=== PATIENT | female | born 1970 | race Caucasian/White ===

== ENCOUNTER 2017-12-29 08:55 | Observation (INO) | payer MEDICARE, MEDICAID ==
[2017-12-29] VITALS (12 sets, daily range): BP systolic 115–140; BP diastolic 75–86
[~2017-12-29] VITALS: Ht 160 cm; Wt 85.7 kg
[2017-12-29] MEDS ORDERED: CHARCOAL/AQUEOUS 50 GM/240 ML BTL PO ONE (09:15)
[2017-12-29] MEDS ORDERED: NS IV 1000 ML 1,000 ML IV ONE (09:20)
--- OUTSIDE RECORDS SUMMARY | 2017-12-29 09:21 | XMS REPORT ---
Author Author MELY VÁSQUEZ eClinicalWorks Address Unknown Phone Unavailable Care Team Providers Care Tool Filer Name Role Phone MELY VÁSQUEZ CP Unavailable Allergies No Known Allergies Problems Problem Type Condition ICD-9 Code Onset Dates Condition Status Assessment Dental examination V72.2 Active Medications No Known Medications Procedures Procedure Coding System Code Date INTRAORL-PERIAPICAL 1 FILM 74538 CPT-4 D0220 Dec 19, 2014 INTRAORL-PERIAPICAL EA ADD FILM CPT-4 D0230 Dec 19, 2014 COMP ORAL EVALUATION - NEW/EST PT CPT-4 D0150 Dec 19, 2014 PROPHYLAXIS - ADULT CPT-4 D1110 Dec 19, 2014 PANORAMIC FILM SEE ALSO CODE 28104 CPT-4 D0330 Dec 19, 2014 TOPICAL FLUORIDE VARNISH CPT-4 D1206 Dec 19, 2014 INTRAORL-PERIAPICAL EA ADD FILM CPT-4 D0230 Dec 19, 2014 INTRAORL-PERIAPICAL EA ADD FILM CPT-4 D0230 Dec 19, 2014 INTRAORL-PERIAPICAL EA ADD FILM CPT-4 D0230 Dec 19, 2014 INTRAORL-PERIAPICAL EA ADD FILM CPT-4 D0230 Dec 19, 2014 Results No Known Results Summary Purpose eClinicalWorks Submission
[2017-12-29 09:25] LABS: BASOPHILS % (AUTO) 0 % (0-10); EOSINOPHILS # (AUTO) 0.3 10^3/uL (0.0-0.3); EOSINOPHILS % (AUTO) 3 % (0-10); HEMATOCRIT 39 % (35-52); HEMOGLOBIN 13.6 G/DL (11.5-16.0); LYMPHOCYTES % (AUTO) 41 % (12-44); MEAN CORPUSCULAR HEMOGLOBIN 27 PG (25-34); MEAN CORPUSCULAR HGB CONC 35 G/DL (32-36); MEAN CORPUSCULAR VOLUME 79 FL (80-99); MEAN PLATELET VOLUME 9.7 FL (7.4-10.4); MONOCYTES # (AUTO) 0.5 X 10^3 (0.0-1.0); MONOCYTES % (AUTO) 5 % (0-12); NEUTROPHILS # (AUTO) 5.1 X 10^3 (1.8-7.8); NEUTROPHILS % (AUTO) 51 % (42-75); PLATELET COUNT 314 10^3/uL (130-400); RED BLOOD COUNT 4.97 10^6/uL (4.35-5.85); RED CELL DISTRIBUTION WIDTH 14.5 % (10.0-14.5); WHITE BLOOD COUNT 9.9 10^3/uL (4.3-11.0)
[2017-12-29 09:43] LABS: ALANINE AMINOTRANSFERASE 14 U/L (0-55); ALKALINE PHOSPHATASE 75 U/L (40-136); BILIRUBIN,TOTAL 0.2 MG/DL (0.1-1.0); BUN/CREATININE RATIO 14; CARBON DIOXIDE 18 MMOL/L (21-32); CHLORIDE 107 MMOL/L (98-107); GFR ESTIMATED > 60; GLUCOSE 135 MG/DL (70-105); POTASSIUM 3.1 MMOL/L (3.6-5.0); SODIUM 138 MMOL/L (135-145); TOTAL PROTEIN 6.7 GM/DL (6.4-8.2)
[2017-12-29 09:50] LABS: BILIRUBIN,URINE NEGATIVE (NEGATIVE); CLARITY,URINE CLEAR; COLOR,URINE YELLOW; GLUCOSE, URINE (UA) NEGATIVE (NEGATIVE); KETONES,URINE NEGATIVE (NEGATIVE); LEUKOCYTE ESTERASE ,URINE NEGATIVE (NEGATIVE); NITRITE,URINE NEGATIVE (NEGATIVE); PH,URINE 6 (5-9); PROTEIN,URINE NEGATIVE (NEGATIVE); UROBILINOGEN,URINE NORMAL (NORMAL)
[2017-12-29 10:05] LABS: TSH (THYROID ANALYZER) 1.17 UIU/ML (0.35-4.94)
[2017-12-29 10:09] LABS: BACTERIA,URINE NEGATIVE /HPF
[2017-12-29] MEDS ORDERED: DULO60CA58 PO (10:11)
[2017-12-29] MEDS ORDERED: MELO15TA39 PO (10:11)
[2017-12-29] MEDS ORDERED: AMLO5TAB7 PO (10:11)
[2017-12-29] MEDS ORDERED: HYDR-3820 PO (10:11)
[2017-12-29] MEDS ORDERED: GABA600T2 PO (10:11)
[2017-12-29] MEDS ORDERED: ARIP5TAB20 PO (10:11)
[2017-12-29] MEDS ORDERED: CLON1TAB13 PO (10:11)
[2017-12-29] MEDS ORDERED: ESTR1TAB24 PO (10:11)
[2017-12-29] MEDS ORDERED: TIZA4TAB3 PO (10:17)
[2017-12-29] MEDS ORDERED: TRAZ-189 PO (10:17)
[2017-12-29] MEDS ORDERED: CATHETER FLUSH 10 ML SYR IV PRN (10:45)
[2017-12-29] MEDS ORDERED: ONDANSETRON 4 MG/2 ML (SDV) Z0FRAN IV PRN (10:45)
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
[2017-12-29] MEDS: NS W/KCL 20 MEQ/L 1,000 ML IV SCH ×2 (11:09→18:19)
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
[2017-12-29] MEDS ORDERED: RT-ALBUTEROL/IPRATROPIUM 3 ML (DUONEB) VIAL INH SCH ×2 (11:30→14:56)
[2017-12-29 11:40] LABS: SALICYLATE < 5.0 MG/DL (5.0-20.0)
[2017-12-29 11:45] LABS: ACETAMINOPHEN < 10 UG/ML (10-30)
[2017-12-29] MEDS: MAGNESIUM 1 GM/100 ML IVPB 100 ML IV SCH ×2 (14:34→14:35)
[2017-12-29] MEDS: POTASSIUM CL 10MEQ/50ML IVPB 50 ML IV SCH ×4 (14:34→14:41)
[2017-12-29 15:00] LABS: ABG BASE EXCESS -2.6 MMOL/L (-2.5-2.5); ABG OXYGEN SATURATION 95 % (94-100); ABG PCO2 35 MMHG (35-45); ABG PO2 75 MMHG (79-93); ABG TCO2 22.6 MMOL/L (21.0-31.0)
[2017-12-29 15:03] LABS: ALLENS TEST POSITIVE
[2017-12-29 15:04] LABS: PATIENT TEMP 98; VENTILATOR NO
--- NOTE | 2017-12-29 15:06 | Pulmonary Consultation ---
History of Present Illness History of Present Illness Date of Consultation 12/29/17 15:00 Time Seen by Provider: 15:00 Date of Admission History of Present Illness 47yo with hx of suicidal attempt (Last week she took gabapentin, neurontin, and clonazepam) with hx of major depression, anxiety, and biplar presented to ED after suicidal attempt. She OD on Neurontin with unknown amount. Pt admits to suicidal thoughts and attempt. She denies homicidal ideatio. She smokes marijuana daily. Allergies and Home Medications Allergies Coded Allergies: No Known Drug Allergies (Unverified , 12/29/17) Home Medications Amlodipine Besylate 5 Mg Tablet, 5 MG PO DAILY, (Reported) Aripiprazole 5 Mg Tablet, 5 MG PO DAILY, (Reported) Clonazepam 1 Mg Tablet, 1 MG PO TID PRN for ANXIETY, (Reported) Duloxetine HCl 60 Mg Capsule.dr, 60 MG PO DAILY, (Reported) Estradiol 1 Mg Tablet, 1 MG PO DAILY, (Reported) Meloxicam 15 Mg Tablet, 15 MG PO DAILY, (Reported) Trazodone HCl 50 Mg Tablet, 25-50 MG PO HS PRN for SLEEP, (Reported) Past Yzebbdq-Oalily-Edsixc Hx Past Med/Social Hx: Reviewed and Corrections made Patient Social History Alcohol Use: Denies Use Recreational Drug Use: Yes Smoking Status: Current Everyday Smoker (48 pack year history. 1.5 PPD. ) Type Used: Cigarettes Recent Foreign Travel: No Contact w/Someone Who Travel: No Recent Infectious Disease Expo: No Past Medical History Surgeries: Yes (neck) Hysterectomy, Orthopedic (neck and arm) Respiratory: No Cardiac: Yes High Cholesterol, Hypertension Neurological: No : No Reproductive Disorders: No Genitourinary: No Gastrointestinal: No Musculoskeletal: Yes Fibromyalgia Endocrine: No HEENT: No Cancer: No Psychosocial: Yes ADD/ADHD, Anxiety, PTSD, Suicide Attempts, Bipolar, Depression Blood Disorders: Yes Review of Systems Time Seen by Provider: 12:27 Sepsis Event Evaluation Height, Weight, BMI Height: 5'3.00" Weight: 189lbs. 0.0oz. 85.922125sc; 33.5 BMI Method:Stated Exam Exam Vital Signs Date Time Temp Pulse Resp B/P (MAP) Pulse Ox O2 Delivery O2 Flow Rate FiO2 12/29/17 14:58 97 Room Air 12/29/17 13:00 73 22 122/76 (91) 93 Room Air 12/29/17 13:00 95 12/29/17 12:00 79 23 116/77 (90) 92 Room Air 12/29/17 11:30 81 25 123/75 (91) 94 Room Air 12/29/17 11:15 80 23 134/79 (97) 93 Room Air 12/29/17 11:00 98.4 80 21 137/86 (103) 95 Room Air 12/29/17 11:00 78 21 137/86 (103) 96 Room Air 12/29/17 10:55 96 Room Air 12/29/17 10:45 78 19 137/78 (97) 96 Room Air 12/29/17 10:38 76 12/29/17 10:21 78 18 127/77 98 12/29/17 08:55 98.1 82 145/95 (112) 97 Room Air Height & Weight Height: 5'3.00" Weight: 189lbs. 0.0oz. 85.080342ha; 33.5 BMI Method:Stated General Appearance: No Apparent Distress, WD/WN HEENT: No Pharynx Normal (Tongue black due to charcoal); Moist Mucous Membranes Cardiovascular: Regular Rate, Rhythm, No Edema, No Murmur, Normal Peripheral Pulses Capillary Refill: Less Than 3 Seconds Extremity: Normal Inspection, No Pedal Edema Neurologic/Psychiatric: Alert, Oriented x3, No Motor/Sensory Deficits, Normal Mood/Affect, appraiser personal property II-XII Norm as Tested; No Abnormal Cerebellar Tests Skin: Normal Color, Warm/Dry Results Lab Laboratory Tests 12/29/17 09:10 Assessment/Plan Assessment/Plan Suicidal attempt/OD -Poinson control is following -Check UDS -Check CXR r/o aspiration -Behavior health consult Metabolic acidosis -Check LA, and ABG Hypokalemia -Repeat labs now and in AM CHRISTY STODDARD DO Dec 29, 2017 15:06
[2017-12-29 15:41] LABS: BASOPHILS % (AUTO) 0 % (0-10); EOSINOPHILS # (AUTO) 0.3 10^3/uL (0.0-0.3); EOSINOPHILS % (AUTO) 3 % (0-10); HEMATOCRIT 39 % (35-52); HEMOGLOBIN 13.5 G/DL (11.5-16.0); LYMPHOCYTES # (AUTO) 4.3 X 10^3 (1.0-4.0); LYMPHOCYTES % (AUTO) 44 % (12-44); MEAN CORPUSCULAR HEMOGLOBIN 27 PG (25-34); MEAN CORPUSCULAR HGB CONC 34 G/DL (32-36); MEAN CORPUSCULAR VOLUME 79 FL (80-99); MEAN PLATELET VOLUME 9.8 FL (7.4-10.4); MONOCYTES # (AUTO) 0.6 X 10^3 (0.0-1.0); MONOCYTES % (AUTO) 6 % (0-12); NEUTROPHILS # (AUTO) 4.5 X 10^3 (1.8-7.8); NEUTROPHILS % (AUTO) 46 % (42-75); PLATELET COUNT 292 10^3/uL (130-400); RED BLOOD COUNT 4.96 10^6/uL (4.35-5.85); RED CELL DISTRIBUTION WIDTH 14.7 % (10.0-14.5); WHITE BLOOD COUNT 9.6 10^3/uL (4.3-11.0)
[2017-12-29 15:44] LABS: AMPHETAMINE SCREEN, URINE POSITIVE (NEGATIVE); BARBITURATE SCREEN URINE NEGATIVE (NEGATIVE); BENZODIAZEPINES SCREEN URINE NEGATIVE (NEGATIVE); CANNABINOID SCREEN, URINE POSITIVE (NEGATIVE); COCAINE SCREEN URINE NEGATIVE (NEGATIVE); METHADONE STAT NEGATIVE (NEGATIVE); METHAMPHETAMINE SCREEN URINE S POSITIVE (NEGATIVE); OPIATE SCREEN URINE POSITIVE (NEGATIVE); OXYCODONE STAT NEGATIVE (NEGATIVE); PROPOXYPHENE STAT NEGATIVE (NEGATIVE); TRICYCLIC ANTIDEPRESSANTS SCRE NEGATIVE (NEGATIVE)
[2017-12-29 16:01] LABS: ALANINE AMINOTRANSFERASE 13 U/L (0-55); ALBUMIN 3.7 GM/DL (3.2-4.5); ALKALINE PHOSPHATASE 71 U/L (40-136); BILIRUBIN,TOTAL 0.3 MG/DL (0.1-1.0); BUN/CREATININE RATIO 9; CALCIUM 8.2 MG/DL (8.5-10.1); CARBON DIOXIDE 20 MMOL/L (21-32); CHLORIDE 110 MMOL/L (98-107); GFR ESTIMATED > 60; GLUCOSE 116 MG/DL (70-105); MAGNESIUM 2.9 MG/DL (1.8-2.4); PHOSPHORUS 3.5 MG/DL (2.3-4.7); POTASSIUM 3.8 MMOL/L (3.6-5.0); SODIUM 138 MMOL/L (135-145); TOTAL PROTEIN 6.1 GM/DL (6.4-8.2)
--- NOTE | 2017-12-29 16:20 | Diagnostic Imaging Report ---
INDICATION: Shortness of breath with cough and congestion. TIME OF EXAM: 03:38 p.m. Correlation is made with prior study from 06/14/2014. The heart size is normal. The lungs are clear. Pulmonary vascularity is normal. No effusion or pneumothorax is seen. There are postop changes in the lower cervical spine. IMPRESSION: No acute cardiopulmonary process is detected. Dictated by: Dictated on workstation # [id number]
[2017-12-29] MEDS ORDERED: clonazePAM 1 MG (KlonoPIN) TAB PO PRN (18:15)
[2017-12-29] MEDS ORDERED: NON-FORMULARY MEDICATION 1 EA EA (Clonazepam 1 MG) PO PRN (18:15)
[2017-12-29] MEDS ORDERED: traZODone 50 MG (DESYREL) TAB PO PRN (18:15)
--- NOTE | 2017-12-29 18:22 | Short Stay Summary-Hospitalist ---
Short Stay Diagnosis D/C Date (1) Suicide attempt (2) Gabapentin overdose (3) Major depression (4) COPD (chronic obstructive pulmonary disease) (5) Hypokalemia Clinical Quality Measures DVT/VTE Risk/Contraindication: Risk Factor Score Per Nursin RFS Level Per Nursing on Admit: 3=High MARY DAWN DO Dec 29, 2017 18:22
[2017-12-30] MEDS ORDERED: NON-FORMULARY MEDICATION 1 EA EA (Amlodipine Besylate 5 MG) PO SCH (09:00)
[2017-12-30] MEDS ORDERED: ARIPIPRAZOLE 10 MG (ABILIFY) TAB PO SCH (09:00)
[2017-12-30] MEDS ORDERED: MELOXICAM 7.5 MG (MOBIC) TABLET PO SCH (09:00)
[2017-12-30] MEDS ORDERED: DULoxetine 30 MG (CYMBALTA) CAP PO SCH (09:00)
[2017-12-30] MEDS ORDERED: ESTRADIOL 1 MG TAB (ESTRACE) PO SCH (09:00)
[2017-12-30] MEDS ORDERED: NON-FORMULARY MEDICATION 1 EA EA (Aripiprazole 5 MG) PO SCH (09:00)
[2017-12-30] MEDS ORDERED: NON-FORMULARY MEDICATION 1 EA EA (Duloxetine HCl 60 MG) PO SCH (09:00)
[2017-12-30] MEDS ORDERED: NON-FORMULARY MEDICATION 1 EA EA (Meloxicam 15 MG) PO SCH (09:00)
[2017-12-30] MEDS ORDERED: amLODIPine 5 MG (NORVASC) TAB PO SCH (09:00)
== END 2017-12-29 19:01 ==
LOC: EDUNIT# 08:55 → ER 08:56 → ICU 09:51 → UNDOADMOB 09:51 → EEVIPCON 09:51 → ICU 10:32 → UNDODISOB 19:05
PROVIDERS: ADMIT Internal Medicine; ATTEND Internal Medicine
DX: T42.6X2A Poisoning by other antiepileptic and sedative-hypnotic drugs, intentional self-harm, initial encounter (principal); E87.6 Hypokalemia; F32.9 Major depressive disorder, single episode, unspecified; I10 Essential (primary) hypertension; E78.00 Pure hypercholesterolemia, unspecified; M79.7 Fibromyalgia; F17.210 Nicotine dependence, cigarettes, uncomplicated; J44.9 Chronic obstructive pulmonary disease, unspecified; F41.9 Anxiety disorder, unspecified; F43.10 Post-traumatic stress disorder, unspecified; Z79.899 Other long term (current) drug therapy
CPT/HCPCS: 36415; 36600; 71045; 80053; 80306; 80320; 80329; 81000; 82805; 83605; 83735; 84100; 84443; 84703; 85025; 87081; 94640; G0378

== ENCOUNTER → 2018-11-16 | Outpatient (CLI) | payer MEDICARE, MEDICAID ==
[~2018-11-16] MED LIST: AMLO5TAB9 PO; ARIP5TAB20 PO; CLON1TAB13 PO; DULO60CA59 PO; ESTR1TAB24 PO; GBPN600T PO; HYDR-3820 PO; MELO15TA39 PO; TIZA4TAB4 PO; TRAZ-222 PO
--- NOTE | 2018-11-17 13:45 | Diagnostic Imaging Report ---
INDICATION: Routine screening. COMPARISON is made with prior mammograms from 04/04/2018 and 02/19/2014. TECHNIQUE: 2-D and 3-D bilateral screening mammography was performed with CAD. FINDINGS: Both breasts remain heterogeneously dense, limiting the sensitivity of mammography. The parenchymal pattern is stable. No mass or malignant appearing microcalcifications are seen. The axillae are unremarkable. IMPRESSION: BI-RADS category 1. No mammographic features suspicious for malignancy are identified. ACR BI-RADS Category 1: Negative. Result letter will be mailed to the patient. Note: At least 10% of breast cancer is not imaged by mammography. Dictated by: Dictated on workstation # [id number]
== END ==
LOC: RAD 10:31
PROVIDERS: ATTEND Family Medicine
DX: Z12.31 Encounter for screening mammogram for malignant neoplasm of breast (principal)
CPT/HCPCS: 77067

== ENCOUNTER 2020-10-30 13:57 | Inpatient (IN) | payer MEDICARE, MEDICAID ==
[~2020-10-30] VITALS: Ht 160 cm; Wt 86.1 kg
[~2020-10-30 13:57] MED LIST changes: +ACHYD1T PO; +AMLO-250 PO; -AMLO5TAB9 PO; -ARIP5TAB20 PO; +ARIP5TAB57 PO; -HYDR-3820 PO; -TRAZ-222 PO; +TRZ50T PO
--- NOTE | 2020-10-30 14:37 | ED Respiratory ---
General Stated Complaint: ALL COVID SYMPTOMS Source: patient Exam Limitations: no limitations History of Present Illness Date Seen by Provider: Oct 30, 2020 Time Seen by Provider: 14:25 Initial Comments Patient is a 50-year-old female who presents to the emergency department today with a chief complaint of "all the Covid symptoms". Patient states that she has had symptoms for about 3 or 4 days. She has had cough, congestion, sore throat, nausea, decreased appetite, shortness of breath. Her significant other presents for Covid testing as well today and relates that she had a syncopal episode when walking to catch the bus today. He was able to help her to the ground. She did not get injured. She complains of nausea and diarrhea. No urinary complaints. She is not Covid vaccinated. She has a history of hypertension, depression/mental illness, fibromyalgia. She is a smoker. On presentation to the room the patient is febrile to 101 and looks like she feels sick. Coarse wet cough. All other review of systems reviewed and negative except as stated above. Timing/Duration: getting worse Severity: moderate Prior Episodes/Possible Cause: illness exposure Modifying Factors: Worse With Coughing Associated Symptoms: cough, dizziness, earache, fever/chills, headache, muscle aches, nasal congestion, nasal drainage, shortness of breath, sore throat Allergies and Home Medications Allergies Coded Allergies: No Known Drug Allergies (Unverified , 12/29/17) Home Medications Amlodipine Besylate 5 Mg Tablet, 5 MG PO DAILY, (Reported) Aripiprazole 5 Mg Tablet, 5 MG PO DAILY, (Reported) Clonazepam 1 Mg Tablet, 1 MG PO TID PRN for ANXIETY, (Reported) Duloxetine HCl 60 Mg Capsule.dr, 60 MG PO DAILY, (Reported) Estradiol 1 Mg Tablet, 1 MG PO DAILY, (Reported) Meloxicam 15 Mg Tablet, 15 MG PO DAILY, (Reported) Trazodone HCl 50 Mg Tablet, 25-50 MG PO HS PRN for SLEEP, (Reported) Patient Home Medication List Home Medication List Reviewed: Yes Review of Systems Review of Systems Constitutional: see HPI, chills, dizziness, fever EENTM: throat pain Respiratory: cough, short of breath Cardiovascular: no symptoms reported Gastrointestinal: loss of appetite, nausea Genitourinary: no symptoms reported : No Musculoskeletal: muscle cramps Skin: no symptoms reported Psychiatric/Neurological: Headache All Other Systems Reviewed Negative Unless Noted: Yes Past Ztwjpmc-Mhjjpr-Zesvdg Hx Past Medical History Surgeries: Yes (neck) Hysterectomy, Orthopedic Respiratory: No Cardiac: Yes High Cholesterol, Hypertension Neurological: No Reproductive Disorders: No Genitourinary: No Gastrointestinal: No Musculoskeletal: Yes Fibromyalgia Endocrine: No HEENT: No Cancer: No Psychosocial: Yes ADD/ADHD, Anxiety, PTSD, Suicide Attempts, Bipolar, Depression Blood Disorders: Yes Family Medical History Hypertension Physical Exam Vital Signs - First Documented Capillary Refill : Height: 5'3.00" Weight: 189lbs. 0.0oz. [id number]; 33.5 BMI Method:Stated General Appearance: WD/WN, mild distress Eyes: Bilateral Eye Normal Inspection, Bilateral Eye PERRL, Bilateral Eye EOMI HEENT: normal ENT inspection, pharynx normal Neck: full range of motion, supple, normal inspection Respiratory: rhonchi (Coarse wet rhonchi throughout posterior bilateral lung vazquez) Cardiovascular: regular rate, rhythm, tachycardia Gastrointestinal: non tender, soft Extremities: non-tender, normal inspection, no pedal edema, no calf tenderness Neurologic/Psychiatric: alert, normal mood/affect, oriented x 3 Skin: normal color, warm/dry Focused Exam Lactate Level 10/30/20 14:55: Lactic Acid Level 1.00 Lactic Acid Level Laboratory Tests Test 10/30/20 14:55 Lactic Acid Level 1.00 MMOL/L (0.50-2.00) Progress/Results/Core Measures Suspected Sepsis SIRS Temperature: Pulse: Respiratory Rate: Laboratory Tests 10/30/20 14:29: White Blood Count 13.2H Blood Pressure / Mean: 10/30/20 14:55: Lactic Acid Level 1.00 Laboratory Tests 10/30/20 14:29: Creatinine 0.74, Platelet Count 314, Total Bilirubin 0.4 Results/Orders Lab Results Laboratory Tests Test 10/30/20 14:26 10/30/20 14:29 10/30/20 14:55 10/30/20 14:59 Range/Units SARS-CoV-2 RNA (RT-PCR) Detected H Not Detecte White Blood Count 13.2 H 4.3-11.0 10^3/uL Red Blood Count 4.96 3.80-5.11 10^6/uL Hemoglobin 12.3 11.5-16.0 g/dL Hematocrit 37 35-52 % Mean Corpuscular Volume 75 L 80-99 fL Mean Corpuscular Hemoglobin 25 25-34 pg Mean Corpuscular Hemoglobin Concent 33 32-36 g/dL Red Cell Distribution Width 15.0 H 10.0-14.5 % Platelet Count 314 130-400 10^3/uL Mean Platelet Volume 9.5 9.0-12.2 fL Immature Granulocyte % (Auto) 1 % Neutrophils (%) (Auto) 80 H 42-75 % Lymphocytes (%) (Auto) 15 12-44 % Monocytes (%) (Auto) 4 0-12 % Eosinophils (%) (Auto) 0 0-10 % Basophils (%) (Auto) 0 0-10 % Neutrophils # (Auto) 10.6 H 1.8-7.8 10^3/uL Lymphocytes # (Auto) 1.9 1.0-4.0 10^3/uL Monocytes # (Auto) 0.5 0.0-1.0 10^3/uL Eosinophils # (Auto) 0.0 0.0-0.3 10^3/uL Basophils # (Auto) 0.0 0.0-0.1 10^3/uL Immature Granulocyte # (Auto) 0.2 H 0.0-0.1 10^3/uL Sodium Level 132 L 135-145 MMOL/L Potassium Level 3.5 L 3.6-5.0 MMOL/L Chloride Level 94 L 98-107 MMOL/L Carbon Dioxide Level 24 21-32 MMOL/L Anion Gap 14 5-14 MMOL/L Blood Urea Nitrogen 7 7-18 MG/DL Creatinine 0.74 0.60-1.30 MG/DL Estimat Glomerular Filtration Rate > 60 BUN/Creatinine Ratio 9 Glucose Level 116 H 70-105 MG/DL Calcium Level 8.7 8.5-10.1 MG/DL Corrected Calcium 8.8 8.5-10.1 MG/DL Total Bilirubin 0.4 0.1-1.0 MG/DL Aspartate Amino Transf (AST/SGOT) 50 H 5-34 U/L Alanine Aminotransferase (ALT/SGPT) 33 0-55 U/L Alkaline Phosphatase 63 40-136 U/L Total Protein 7.7 6.4-8.2 GM/DL Albumin 3.9 3.2-4.5 GM/DL Lactic Acid Level 1.00 0.50-2.00 MMOL/L Urine Color YELLOW Urine Clarity CLEAR Urine pH 6.5 5-9 Urine Specific Cumby 1.025 H 1.016-1.022 Urine Protein 2+ H NEGATIVE Urine Glucose (UA) NEGATIVE NEGATIVE Urine Ketones NEGATIVE NEGATIVE Urine Nitrite NEGATIVE NEGATIVE Urine Bilirubin NEGATIVE NEGATIVE Urine Urobilinogen 1.0 < = 1.0 MG/DL Urine Leukocyte Esterase NEGATIVE NEGATIVE Urine RBC (Auto) TRACE-I NEGATIVE Urine RBC 0-2 /HPF Urine WBC 2-5 /HPF Urine Crystals PRESENT H /LPF Urine Amorphous Sediment LARGE JULIEN URATES H /LPF Urine Bacteria TRACE /HPF Urine Casts NONE /LPF Urine Mucus SMALL H /LPF Urine Culture Indicated NO My Orders Orders - RAE ROMERO MD Cbc With Automated Diff (10/30/20 14:27) Comprehensive Metabolic Panel (10/30/20 14:27) Blood Culture (10/30/20 14:27) Sputum Culture (10/30/20 14:27) Urinalysis (10/30/20 14:) Urine Culture (10/30/20 14:27) Chest 1 View, Ap/Pa Only (10/30/20 14:27) Ed Iv/Invasive Line Start (10/30/20 14:27) Ed Iv/Invasive Line Start (10/30/20 14:27) Vital Signs Adult Sepsis Patie Q15M (10/30/20 14:27) O2 (10/30/20 14:27) Remove Rings In Anticipation O (10/30/20 14:27) Lactic Acid Analyzer (10/30/20 14:27) Ns Iv 1000 Ml (Sodium Chloride 0.9%) (10/30/20 14:45) Ibuprofen Tablet (Motrin Tablet) (10/30/20 14:45) Ondansetron Oral Dissolve Tab (Zofran (10/30/20 16:15) Albuterol Inhaler (Ventolin Hfa) (10/30/20 18:00) Azithromycin Tablet (Zithromax Tablet) (10/30/20 16:15) Albuterol Inhaler (Ventolin Hfa) (10/30/20 16:18) Medications Given in ED Current Medications Medications Dose Ordered Sig/Rossana Route Start Time Stop Time Status Last Admin Dose Admin Azithromycin 500 mg ONCE ONCE PO 7/15/21 16:15 10/30/20 16:16 DC 10/30/20 16:20 500 MG Ibuprofen 600 mg ONCE ONCE PO 10/30/20 14:45 10/30/20 14:46 DC 10/30/20 15:06 600 MG Ondansetron HCl 4 mg ONCE ONCE PO 10/30/20 16:15 10/30/20 16:16 DC 10/30/20 16:13 4 MG Vital Signs/I&O 10/30/20 10/30/20 10/30/20 10/30/20 14:20 14:20 14:20 15:06 Temp 38.0 38.0 38.0 38.0 Pulse 104 104 104 Resp 24 24 24 B/P (MAP) 140/86 (104) 140/86 140/86 (104) Pulse Ox 94 94 94 O2 Delivery Room Air Capillary Refill : Progress Note : Time: 17:20 Progress Note Multiple reevaluations of the patient show that she continues to be borderline hypoxic with room air saturations 90 to 91%. Patient looks sick. She is slightly tachycardic she is febrile in the department. She is treated with a breathing treatment, 4 mg of Zofran, a liter of fluids and 500 mg of azithromycin. She is also given Decadron 6 mg IV. I initially discussed the monoclonal antibody Regeneron with the patient and consented her for this for tomorrow however secondary to the patient's clinical state and how sick she looks I elected to admit the patient instead. Patient is consented for convalescent plasma. I have reviewed the risks and benefits. She agrees to proceed. Patient is placed on 2 L of oxygen per nasal cannula with improvement of her oxygen saturations. Diagnostic Imaging Diagonstic Imaging: Xray Plain Films/CT/US/NM/MRI: chest Comments [facility] [place], [place] NAME: ANTHONY URBAN MED REC#: [id number] PT STATUS: REG ER : 1970 PHYSICIAN: RAE ROMERO MD ADMIT DATE: 10/30/20/ER Draft Date of Exam:10/30/20 CHEST 1 VIEW, AP/PA ONLY EXAMINATION: Chest, one view. HISTORY: Sepsis. COMPARISON: 12/29/2017. FINDINGS: There are bilateral airspace opacities which are moderately severe. No pleural effusion or pneumothorax. Heart size is normal. IMPRESSION: 1. Moderate bilateral airspace opacities suggestive of pneumonia. Dictated on workstation # [id number] Dict: 10/30/20 1542 Trans: 10/30/20 1544 [id number] Interpreted by: YEYO CAMEJO MD Electronically signed by: Departure Communication (Admissions) Time/Spoke to Admitting Phy: 17:[address] Morin who accepts the patient for admission Impression Primary Impression: Pneumonia due to COVID-19 virus Disposition: ADMITTED INPATIENT Condition: Stable Admissions Decision to Admit Reason: Admit from ER (General) Decision to Admit/Date: Oct 30, 2020 Time/Decision to Admit Time: 17:20 Departure-Patient Inst. Referrals: NO,LOCAL PHYSICIAN (PCP/Family) Primary Care Physician RAE ROMERO MD Oct 30, 2020 14:37
[2020-10-30 14:41] LABS: BASOPHILS % (AUTO) 0 % (0-10); EOSINOPHILS % (AUTO) 0 % (0-10); HEMATOCRIT 37 % (35-52); HEMOGLOBIN 12.3 g/dL (11.5-16.0); LYMPHOCYTES # (AUTO) 1.9 10^3/uL (1.0-4.0); LYMPHOCYTES % (AUTO) 15 % (12-44); MEAN CORPUSCULAR HEMOGLOBIN 25 pg (25-34); MEAN CORPUSCULAR HGB CONC 33 g/dL (32-36); MEAN CORPUSCULAR VOLUME 75 fL (80-99); MEAN PLATELET VOLUME 9.5 fL (9.0-12.2); MONOCYTES # (AUTO) 0.5 10^3/uL (0.0-1.0); MONOCYTES % (AUTO) 4 % (0-12); NEUTROPHILS # (AUTO) 10.6 10^3/uL (1.8-7.8); NEUTROPHILS % (AUTO) 80 % (42-75); PLATELET COUNT 314 10^3/uL (130-400); WHITE BLOOD COUNT 13.2 10^3/uL (4.3-11.0)
[2020-10-30] MEDS ORDERED: NS IV 1000 ML 1,000 ML IV SCH (14:45)
[2020-10-30] MEDS ORDERED: IBUPROFEN 600 MG (MOTRIN) TAB PO ONE (14:45)
[2020-10-30 14:51] LABS: ALBUMIN 3.9 GM/DL (3.2-4.5)
[2020-10-30 14:52] LABS: CHLORIDE 94 MMOL/L (98-107); POTASSIUM 3.5 MMOL/L (3.6-5.0); SODIUM 132 MMOL/L (135-145)
[2020-10-30 14:53] LABS: CALCIUM 8.7 MG/DL (8.5-10.1)
[2020-10-30 14:54] LABS: GLUCOSE 116 MG/DL (70-105); TOTAL PROTEIN 7.7 GM/DL (6.4-8.2)
[2020-10-30 14:55] LABS: CARBON DIOXIDE 24 MMOL/L (21-32)
[2020-10-30 14:56] LABS: BILIRUBIN,TOTAL 0.4 MG/DL (0.1-1.0)
[2020-10-30 14:57] LABS: ALKALINE PHOSPHATASE 63 U/L (40-136)
[2020-10-30 14:58] LABS: CREATININE SERUM 0.74 MG/DL (0.60-1.30); GFR ESTIMATED > 60
[2020-10-30 14:59] LABS: BUN/CREATININE RATIO 9
[2020-10-30 15:01] LABS: ALANINE AMINOTRANSFERASE 33 U/L (0-55)
[2020-10-30 15:18] LABS: BILIRUBIN,URINE NEGATIVE (NEGATIVE); CLARITY,URINE CLEAR; COLOR,URINE YELLOW; GLUCOSE, URINE (UA) NEGATIVE (NEGATIVE); KETONES,URINE NEGATIVE (NEGATIVE); LEUKOCYTE ESTERASE ,URINE NEGATIVE (NEGATIVE); NITRITE,URINE NEGATIVE (NEGATIVE); PH,URINE 6.5 (5-9); PROTEIN,URINE 2+ (NEGATIVE)
[2020-10-30 15:36] LABS: AMORPHOUS SEDIMENT,UR LARGE AMOR URATES /LPF; BACTERIA,URINE TRACE /HPF; RBC,URINE 0-2 /HPF
--- NOTE | 2020-10-30 15:45 | Diagnostic Imaging Report ---
EXAMINATION: Chest, one view. HISTORY: Sepsis. COMPARISON: 12/29/2017. FINDINGS: There are bilateral airspace opacities which are moderately severe. No pleural effusion or pneumothorax. Heart size is normal. IMPRESSION: 1. Moderate bilateral airspace opacities suggestive of pneumonia. Dictated by: Dictated on workstation # [id number]
[2020-10-30] MEDS ORDERED: AZITHROMYCIN 250 MG TAB (ZITHROMAX) PO ONE (16:15)
[2020-10-30] MEDS ORDERED: ONDANSETRON 4 MG (ZOFRAN) ORAL DISSOLVE TAB PO ONE (16:15)
[2020-10-30] MEDS ORDERED: RT-ALBUTEROL INHALER HFA (VENTOLIN HFA) 18 GM IH ONE (16:18)
[2020-10-30] MEDS ORDERED: RT-ALBUTEROL INHALER HFA (VENTOLIN HFA) 18 GM IH SCH (18:00)
[2020-10-30] MEDS ORDERED: NS IV 1000 ML 1,000 ML ONE (18:39)
[2020-10-30 19:00] VITALS: BP 113/62
[2020-10-30] MEDS: NS IV 1000 ML 1,000 ML IV SCH (19:09)
[2020-10-30] MEDS ORDERED: CATHETER FLUSH 10 ML SYR IV PRN (19:15)
[2020-10-30 19:44] VITALS: BP 140/86
[2020-10-30 20:00] VITALS: BP 91/60
[2020-10-30] MEDS ORDERED: RT-ALBUTEROL INHALER HFA (VENTOLIN HFA) 18 GM IH PRN (20:00)
--- NOTE | 2020-10-30 20:36 | Tele-ICU Consult ---
History of Present Illness History of Present Illness Date Seen by Provider: Oct 30, 2020 Time Seen by Provider: 20:33 Date of Admission 50 yo F with URI Sx, cough and SOB, bilateral opacities, on nasal cannula 3 lpm, not looking SOB, COVID +, did not get vaccine, T max 101 Had syncopal episode today while walking to bus On IV decadron, ,to get convalescent plasma, not on remdesivir, renal and liver function ok, boyfriend just in hosp for COVID PMH bipolar, suicide attempt, HTN, ,HLD, mild obesity, PTSD Allergies and Home Medications Allergies Coded Allergies: No Known Drug Allergies (Unverified , 12/29/17) Home Medications Amlodipine Besylate 5 Mg Tablet, 5 MG PO DAILY, (Reported) Aripiprazole 5 Mg Tablet, 5 MG PO DAILY, (Reported) Clonazepam 1 Mg Tablet, 1 MG PO TID PRN for ANXIETY, (Reported) Duloxetine HCl 60 Mg Capsule.dr, 60 MG PO DAILY, (Reported) Estradiol 1 Mg Tablet, 1 MG PO DAILY, (Reported) Meloxicam 15 Mg Tablet, 15 MG PO DAILY, (Reported) Trazodone HCl 50 Mg Tablet, 25-50 MG PO HS PRN for SLEEP, (Reported) Past Medical/Social/Family Hx Patient Social History Tobacco Use?: Yes Tobacco type used: Cigarettes Smoking Status: Current Everyday Smoker Use of E-Cig and/or Vaping dev: No Substance use?: No Alcohol Use?: No Pt stated abuse/neglect: No Immunizations Up To Date Influenza Vaccine Up-to-Date: No; Not Current Tetanus Booster (TDap): Unknown Hepatitis A: No Current Status Advance Directives: No Communicates: Verbally Primary Language: British Preferred Spoken Language: British Is interpretation needed?: No Implanted or Applied Medical D: None Review of Systems Constitutional: malaise Psychiatric/Neurological: Anxiety Sepsis Event Evaluation Height, Weight, BMI Height: 5'3.00" Weight: 189lbs. 0.0oz. 85.158596sv; 33.63 BMI Method:Stated Exam Exam Patient acknowledged, consented, and participated in this virtual visit which was conducted using real time audio/video Vital Signs Date Time Temp Pulse Resp B/P (MAP) Pulse Ox O2 Delivery O2 Flow Rate FiO2 10/30/20 19:44 38.0 104 94 10/30/20 18:25 90 Nasal Cannula 2.00 10/30/20 15:06 38.0 10/30/20 14:20 38.0 104 24 140/86 (104) 94 10/30/20 14:20 38.0 104 24 140/86 94 10/30/20 14:20 38.0 104 24 140/86 (104) 94 Room Air Height & Weight Height: 5'3.00" Weight: 189lbs. 0.0oz. 85.151055vn; 33.63 BMI Method:Stated General Appearance: Anxious Respiratory: Respiratory Distress Capillary Refill: Less Than 3 Seconds Gastrointestinal: non tender, soft Results Lab Laboratory Tests 10/30/20 14:29 Assessment/Plan Assessment/Plan bilateral PNA, fro COVID, on decadron, to get convalscent plasma, would add remdesir monitor SpO2 and work of breathing Sage White MD Critical Care: Critically Ill Patient Time spent with patient (mins): 20 NORMAN WHITE MD Oct 30, 2020 20:36
[2020-10-30] MEDS: RT-ALBUTEROL INHALER HFA (VENTOLIN HFA) 18 GM IH SCH (21:12)
[2020-10-31] VITALS (12 sets, daily range): BP systolic 109–140; BP diastolic 58–83
[2020-10-31] MEDS: NS IV 1000 ML 1,000 ML IV SCH ×4 (03:02→21:07)
[2020-10-31] MEDS: RT-ALBUTEROL INHALER HFA (VENTOLIN HFA) 18 GM IH SCH ×4 (03:15→21:45)
[2020-10-31 04:42] LABS: ALBUMIN 3.6 GM/DL (3.2-4.5); CHLORIDE 102 MMOL/L (98-107); POTASSIUM 3.4 MMOL/L (3.6-5.0); SODIUM 136 MMOL/L (135-145)
[2020-10-31 04:44] LABS: CALCIUM 8.8 MG/DL (8.5-10.1)
[2020-10-31 04:45] LABS: GLUCOSE 205 MG/DL (70-105); TOTAL PROTEIN 7.3 GM/DL (6.4-8.2)
[2020-10-31 04:46] LABS: CARBON DIOXIDE 21 MMOL/L (21-32)
[2020-10-31 04:47] LABS: BILIRUBIN,TOTAL 0.3 MG/DL (0.1-1.0)
[2020-10-31 04:48] LABS: ALKALINE PHOSPHATASE 58 U/L (40-136); CREATININE SERUM 0.74 MG/DL (0.60-1.30); GFR ESTIMATED > 60
[2020-10-31 04:49] LABS: BUN/CREATININE RATIO 9
[2020-10-31 04:51] LABS: ALANINE AMINOTRANSFERASE 31 U/L (0-55)
[2020-10-31] MEDS: AZITHROMYCIN 250 MG TAB (ZITHROMAX) PO SCH (07:47)
[2020-10-31] MEDS ORDERED: REMDESIVIR INJ 200 MG in NS (IVPB) 210 ML IV NR (08:00)
--- NOTE | 2020-10-31 08:34 | History & Physical-Hospitalist ---
History of Present Illness HPI/Chief Complaint Pt is a 50yoCF witha PMH of HTN, fibromyalgia, PTSD, anxiety/Depression who presented to the ER with COVID like symptoms. She states her symptoms started 4- 5 days ago with cough, SOB, sore throat, lossof taste, nausea, diarrhea. She was tested in the ER and found to be positive for COVID. She is unvaccinated. She reports having a rough night with chills, cough, and body aches. She has been having off and on fevers as well. She is clinically ill appearing. Source: patient Date Seen 10/31/20 Time Seen by a Provider: 08:27 Attending Physician Girma Thacker MD PCP No,Local Physician Referring Physician Date of Admission Oct 30, 2020 at 17:20 Home Medications & Allergies Home Medications Reviewed patient Home Medication Reconciliation performed by pharmacy medication reconciliations engineering laboratory technician and/or nursing. Patients Allergies have been reviewed. Allergies Allergies Coded Allergies No Known Drug Allergies (Unverified12/29/17) Past Hwaihrs-Gmsubh-Iaplzq Hx Patient Social History Marrital Status: cohabiting Tobacco Use?: Yes Tobacco type used: Cigarettes Smoking Status: Current Everyday Smoker Use of E-Cig and/or Vaping dev: No Substance use?: No Alcohol Use?: No Pt feels they are or have been: No Immunizations Up To Date First/Initial COVID19 Vaccinat: Did not get Second COVID19 Vaccination Gary: Did not get Tetanus Booster (TDap): Unknown Hepatitis A: No Current Status Advance Directives: No Communicates: Verbally Primary Language: Paraguayan Preferred Spoken Language: Paraguayan Is interpretation needed?: No Implanted or Applied Medical D: None Past Medical History Surgeries: Hysterectomy, Orthopedic High Cholesterol, Hypertension Fibromyalgia ADD/ADHD, Anxiety, PTSD, Suicide Attempts, Bipolar, Depression Blood Disorders: Yes Family Medical History Reviewed Nursing Family Hx Hypertension Review of Systems Constitutional: chills, fever, malaise, weakness EENTM: hoarseness, throat pain Respiratory: cough, dyspnea on exertion, short of breath Cardiovascular: No chest pain, No edema, No palpitations; syncope (near syncope) Gastrointestinal: see HPI, diarrhea, loss of appetite, nausea Genitourinary: no symptoms reported Musculoskeletal: muscle pain, muscle cramps Skin: no symptoms reported Psychiatric/Neurological: Headache Physical Exam Physical Exam Vital Signs Vital Signs - First Documented 10/30/20 18:10 O2 Flow Rate 2.00 Capillary Refill : Less Than 3 Seconds Height, Weight, BMI Height: 5'3.00" Weight: 189lbs. 0.0oz. 85.598266fa; 33.63 BMI Method:Stated General Appearance: Chronically ill, Obese, Other (ill appearing) HEENT: PERRL/EOMI; No Scleral Icterus (L), No Scleral Icterus (R); Other (dry mucous membranes) Neck: Normal Inspection, Supple Respiratory: Rhonci, Other (tachypneic on 3lpm ) Cardiovascular: Regular Rate, Rhythm, No Murmur Gastrointestinal: Normal Bowel Sounds, Non Tender, Soft Genital/Rectal: Other (neely) Extremity: Normal Capillary Refill, No Calf Tenderness, No Pedal Edema Neurologic/Psychiatric: Alert, Oriented x3, Normal Mood/Affect Skin: Normal Color, Warm/Dry Results Results/Procedures Labs Laboratory Tests 10/30/20 14:29 10/31/20 03:57 11/01/20 02:00 Patient resulted labs reviewed. Imaging: Reviewed Imaging Report [facility] [place] [place] NAME: ANTHONY URBAN [facility] REC#: [id number] PT STATUS: REG ER : 1970 PHYSICIAN: RAE ROMERO MD ADMIT DATE: 10/30/20/ER Signed Date of Exam:10/30/20 CHEST 1 VIEW, AP/PA ONLY EXAMINATION: Chest, one view. HISTORY: Sepsis. COMPARISON: 12/29/2017. FINDINGS: There are bilateral airspace opacities which are moderately severe. No pleural effusion or pneumothorax. Heart size is normal. IMPRESSION: 1. Moderate bilateral airspace opacities suggestive of pneumonia. Dictated by: Dictated on workstation # [id number] Dict: 10/30/20 1542 Trans: 10/30/20 1637 [id number] Interpreted by: YEYO CAMEJO MD Electronically signed by: YEYO CAMEJO MD 10/30/20 1637 Assessment/Plan Admission Diagnosis Acute hypoxic respiratory failure due to COVID19 Admission Status: Inpatient Order (span 2 midnights) Reason for Inpatient Admission: see below Assessment and Plan Acute hypoxic respiratory failure due to COVID19 Continue on supplemental oxygen to keep sats >90 Remdesivir order Consented to convalescent plasma, await arrival Continue decadron Lovenox Antitussive TelePulm consult Quite tachypneic still so will leave in stepdown HTN BP well controlled, trend Anxiety/Depression Fibromylagia PTSD Continue home meds DVT ppx: Lovenox Code status: At first request CPR only and no intubation- discussed with patient the futility of doing CPR without oxygenation, she agrees to Full resuscitation in regards to cardiac arrest and is unsure about intubation should she progress to needing it. Advised to discus with her fiance and let us know. Diagnosis/Problems Diagnosis/Problems (1) Tobacco abuse (2) Anxiety with depression (3) PTSD (post-traumatic stress disorder) (4) Fibromyalgia (5) Pneumonia due to COVID-19 virus Status: Acute (6) Hypoxia (7) Major depression Status: Acute GIRMA THACKER MD Oct 31, 2020 08:34
[2020-10-31] MEDS ORDERED: guaiFENesin/DM (ROBITUSSIN DM) 10 ML UDC PO PRN (08:45)
[2020-10-31] MEDS ORDERED: KCL 20 MEQ TAB (K-DUR) PO ONE (10:00)
[2020-10-31] MEDS ORDERED: FURO20TA4 PO (15:05)
[2020-10-31] MEDS ORDERED: GBPN600T PO (15:05)
[2020-10-31] MEDS ORDERED: MILK OF MAGNESIA 400 MG/5 ML 30 ML UDC PO PRN (20:45)
[2020-10-31] MEDS ORDERED: ONDANSETRON 4 MG/2 ML (SDV) Z0FRAN IV PRN (20:45)
[2020-10-31] MEDS ORDERED: ANTACID SUSP 30 ML UDC (MYLANTA) PO PRN (20:45)
[2020-10-31] MEDS ORDERED: MELATONIN 3 MG TABLET PO PRN (20:45)
[2020-10-31] MEDS ORDERED: ACETAMINOPHEN 325 MG TABLET PO PRN (20:45)
[2020-10-31] MEDS ORDERED: IBUPROFEN 600 MG (MOTRIN) TAB PO PRN (21:00)
[2020-10-31] MEDS ORDERED: ACETAMINOPHEN 325 MG TABLET ONE (21:01)
[2020-10-31] MEDS: guaiFENesin/CODEINE (ROBITUSSIN AC) 10ML UDC PO PRN (21:05)
[2020-11-01] VITALS (8 sets, daily range): BP systolic 117–147; BP diastolic 65–89
[2020-11-01] MEDS: RT-ALBUTEROL INHALER HFA (VENTOLIN HFA) 18 GM IH SCH ×4 (02:07→21:06)
[2020-11-01 04:06] LABS: ALBUMIN 3.1 GM/DL (3.2-4.5); CHLORIDE 105 MMOL/L (98-107); POTASSIUM 4.5 MMOL/L (3.6-5.0); SODIUM 139 MMOL/L (135-145)
[2020-11-01 04:07] LABS: CALCIUM 8.1 MG/DL (8.5-10.1)
[2020-11-01 04:08] LABS: GLUCOSE 137 MG/DL (70-105)
[2020-11-01 04:09] LABS: TOTAL PROTEIN 6.2 GM/DL (6.4-8.2)
[2020-11-01 04:10] LABS: CARBON DIOXIDE 22 MMOL/L (21-32)
[2020-11-01 04:11] LABS: BILIRUBIN,TOTAL 0.4 MG/DL (0.1-1.0)
[2020-11-01 04:12] LABS: ALKALINE PHOSPHATASE 51 U/L (40-136); CREATININE SERUM 0.64 MG/DL (0.60-1.30); GFR ESTIMATED > 60
[2020-11-01 04:13] LABS: BUN/CREATININE RATIO 13
[2020-11-01 04:15] LABS: ALANINE AMINOTRANSFERASE 26 U/L (0-55); MAGNESIUM 2.1 MG/DL (1.6-2.4)
[2020-11-01] MEDS: POTASSIUM CL 10MEQ/50ML IVPB 50 ML IV SCH (04:39)
[2020-11-01] MEDS: MAGNESIUM 1 GM/100 ML IVPB 100 ML IV SCH (04:39)
[2020-11-01] MEDS: KCL 20 MEQ TAB (K-DUR) PO SCH (04:39)
[2020-11-01] MEDS: NS IV 1000 ML 1,000 ML IV SCH ×2 (05:14→14:53)
[2020-11-01] MEDS: REMDESIVIR INJ 100 MG in NS (IVPB) 230 ML IV SCH (08:42)
[2020-11-01] MEDS: AZITHROMYCIN 250 MG TAB (ZITHROMAX) PO SCH (08:42)
--- NOTE | 2020-11-01 10:05 | Progress Note - Hospitalist ---
Subjective HPI/CC On Admission Date Seen by Provider: Nov 01, 2020 Time Seen by Provider: 10:02 Pt is a 50yoCF witha PMH of HTN, fibromyalgia, PTSD, anxiety/Depression who presented to the ER with COVID like symptoms. She states her symptoms started 4- 5 days ago with cough, SOB, sore throat, lossof taste, nausea, diarrhea. She was tested in the ER and found to be positive for COVID. She is unvaccinated. She reports having a rough night with chills, cough, and body aches. She has been having off and on fevers as well. She is clinically ill appearing. Subjective/Events-last exam Pt reports doing ok today. Still short of breath with chest tightness. Still increased work of breathing but improving from yesterday. Has not been out of bed. Encouraged OOB. Focused Exam Lactate Level 10/30/20 14:55: Lactic Acid Level 1.00 Objective Exam Vital Signs Vital Signs Date Time Temp Pulse Resp B/P (MAP) Pulse Ox O2 Delivery O2 Flow Rate FiO2 11/01/20 08:42 36.0 Nasal Cannula 5.00 11/01/20 08:00 79 27 139/89 (106) 99 Capillary Refill : Less Than 3 Seconds General Appearance: Chronically ill, Other (clinically ill appearing still) Respiratory: Crackles, Rhonci, Other (RR high 20s ) Cardiovascular: Regular Rate, Rhythm, No Murmur Gastrointestinal: Normal Bowel Sounds, Non Tender, Soft Neurologic/Psychiatric: Alert, Oriented x3 Results/Procedures Lab Laboratory Tests 11/01/20 02:00 Patient resulted labs reviewed. Imaging: Reviewed Imaging Report Assessment/Plan Assessment and Plan Assess & Plan/Chief Complaint Acute hypoxic respiratory failure due to COVID19 Continue on supplemental oxygen to keep sats >90 Remdesivir s/p 1 unit convalescent plasma Continue decadron x 10 days Lovenox Antitussive prn TelePulm consult Tachypnea improving but will remain in stepdown due to this HTN BP well controlled, trend Anxiety/Depression Fibromylagia PTSD Continue home meds DVT ppx: Lovenox Critical Care Critically Ill Patient Diagnosis/Problems Diagnosis/Problems (1) Tobacco abuse (2) Anxiety with depression (3) PTSD (post-traumatic stress disorder) (4) Fibromyalgia (5) Pneumonia due to COVID-19 virus Status: Acute (6) Hypoxia (7) Major depression Status: Acute GIRMA MOURA MD Nov 01, 2020 10:05
[2020-11-01] MEDS: hydrOXYzine (ATARAX) 10 MG TAB PO PRN ×2 (15:57→20:56)
[2020-11-01] MEDS: guaiFENesin/CODEINE (ROBITUSSIN AC) 10ML UDC PO PRN (20:56)
[2020-11-02] MEDS: RT-ALBUTEROL INHALER HFA (VENTOLIN HFA) 18 GM IH SCH ×4 (02:49→18:32)
[2020-11-02 04:34] LABS: ALBUMIN 2.9 GM/DL (3.2-4.5); CHLORIDE 103 MMOL/L (98-107); POTASSIUM 3.9 MMOL/L (3.6-5.0); SODIUM 136 MMOL/L (135-145)
[2020-11-02 04:35] LABS: CALCIUM 7.9 MG/DL (8.5-10.1)
[2020-11-02 04:36] LABS: GLUCOSE 144 MG/DL (70-105); TOTAL PROTEIN 5.9 GM/DL (6.4-8.2)
[2020-11-02 04:37] LABS: CARBON DIOXIDE 20 MMOL/L (21-32)
[2020-11-02 04:38] LABS: BILIRUBIN,TOTAL 0.4 MG/DL (0.1-1.0)
[2020-11-02 04:40] LABS: ALKALINE PHOSPHATASE 60 U/L (40-136); CREATININE SERUM 0.62 MG/DL (0.60-1.30); GFR ESTIMATED > 60
[2020-11-02 04:41] LABS: BUN/CREATININE RATIO 19
[2020-11-02 04:43] LABS: ALANINE AMINOTRANSFERASE 29 U/L (0-55)
[2020-11-02 04:48] VITALS: BP 132/76
[2020-11-02] MEDS: MAGNESIUM 1 GM/100 ML IVPB 100 ML IV SCH (05:21)
[2020-11-02] MEDS: POTASSIUM CL 10MEQ/50ML IVPB 50 ML IV SCH (05:21)
[2020-11-02] MEDS: KCL 20 MEQ TAB (K-DUR) PO SCH (05:22)
[2020-11-02 08:00] VITALS: BP 137/84
[2020-11-02] MEDS: AZITHROMYCIN 250 MG TAB (ZITHROMAX) PO SCH (09:40)
[2020-11-02] MEDS: hydrOXYzine (ATARAX) 10 MG TAB PO PRN ×2 (09:41→18:27)
[2020-11-02] MEDS: REMDESIVIR INJ 100 MG in NS (IVPB) 230 ML IV SCH (09:42)
--- NOTE | 2020-11-02 10:43 | Progress Note - Hospitalist ---
Subjective HPI/CC On Admission Date Seen by Provider: Nov 02, 2020 Time Seen by Provider: 10:40 Pt is a 50yoCF witha PMH of HTN, fibromyalgia, PTSD, anxiety/Depression who presented to the ER with COVID like symptoms. She states her symptoms started 4- 5 days ago with cough, SOB, sore throat, lossof taste, nausea, diarrhea. She was tested in the ER and found to be positive for COVID. She is unvaccinated. She reports having a rough night with chills, cough, and body aches. She has been having off and on fevers as well. She is clinically ill appearing. Subjective/Events-last exam Pt reports not feeling well today. No specific complaints just generalized pain. Now on Vapotherm. Per RN desatted to 83% last night. Focused Exam Lactate Level 10/30/20 14:55: Lactic Acid Level 1.00 Objective Exam Vital Signs Vital Signs Date Time Temp Pulse Resp B/P (MAP) Pulse Ox O2 Delivery O2 Flow Rate FiO2 11/02/20 09:46 92 Vapotherm 20.00 55 11/02/20 08:00 36.4 11/02/20 08:00 58 28 137/84 (101) Capillary Refill : Less Than 3 Seconds General Appearance: No Apparent Distress, Obese Respiratory: Decreased Breath Sounds, Rhonci, Other (on vapotherm 20lpm at 60%) Cardiovascular: Regular Rate, Rhythm, No Murmur Neurologic/Psychiatric: Alert, Oriented x3, Normal Mood/Affect Results/Procedures Lab Laboratory Tests 11/02/20 03:47 Patient resulted labs reviewed. Imaging: Reviewed Imaging Report Assessment/Plan Assessment and Plan Assess & Plan/Chief Complaint Acute hypoxic respiratory failure due to COVID19 Continue on supplemental oxygen to keep sats >90 Remdesivir s/p 1 unit convalescent plasma Continue decadron x 10 days Lovenox Antitussive prn TelePulm consult Now on Vapotherm, will keep in stepdown, if increasing requirement switch to ICU status HTN BP well controlled, trend Anxiety/Depression Fibromylagia PTSD Continue home meds DVT ppx: Lovenox Critical Care Critically Ill Patient Diagnosis/Problems Diagnosis/Problems (1) Tobacco abuse (2) Anxiety with depression (3) PTSD (post-traumatic stress disorder) (4) Fibromyalgia (5) Pneumonia due to COVID-19 virus Status: Acute (6) Hypoxia (7) Major depression Status: Acute GIRMA MOURA MD Nov 02, 2020 10:43
[2020-11-02] MEDS: HYDROcodone/APAP 5 MG/325 MG (LORTAB) TAB PO PRN ×3 (11:14→23:27)
[2020-11-02] MEDS: BENZONATATE 100 MG (TESSALON) CAPSULE PO PRN ×2 (11:14→20:18)
[2020-11-02 12:00] VITALS: BP 140/77
[2020-11-02 15:42] VITALS: BP 130/65
[2020-11-02 19:06] VITALS: BP 144/75
[2020-11-02 20:00] VITALS: BP 152/84
[2020-11-02] MEDS: guaiFENesin/CODEINE (ROBITUSSIN AC) 10ML UDC PO PRN (20:18)
[2020-11-03] MEDS: RT-ALBUTEROL INHALER HFA (VENTOLIN HFA) 18 GM IH SCH ×5 (02:05→21:30)
[2020-11-03 03:42] LABS: ALBUMIN 2.9 GM/DL (3.2-4.5); CHLORIDE 102 MMOL/L (98-107); POTASSIUM 4.2 MMOL/L (3.6-5.0); SODIUM 135 MMOL/L (135-145)
[2020-11-03 03:43] LABS: CALCIUM 7.7 MG/DL (8.5-10.1)
[2020-11-03 03:44] LABS: GLUCOSE 140 MG/DL (70-105); TOTAL PROTEIN 5.8 GM/DL (6.4-8.2)
[2020-11-03 03:45] LABS: CARBON DIOXIDE 24 MMOL/L (21-32)
[2020-11-03 03:46] LABS: BILIRUBIN,TOTAL 0.5 MG/DL (0.1-1.0)
[2020-11-03 03:48] LABS: ALKALINE PHOSPHATASE 65 U/L (40-136); GFR ESTIMATED > 60
[2020-11-03 03:49] LABS: BUN/CREATININE RATIO 20
[2020-11-03 03:51] LABS: ALANINE AMINOTRANSFERASE 28 U/L (0-55); MAGNESIUM 2.1 MG/DL (1.6-2.4)
[2020-11-03 04:00] VITALS: BP 142/82
[2020-11-03 08:00] VITALS: BP 147/91
[2020-11-03] MEDS: REMDESIVIR INJ 100 MG in NS (IVPB) 230 ML IV SCH (08:59)
[2020-11-03] MEDS: AZITHROMYCIN 250 MG TAB (ZITHROMAX) PO SCH (09:00)
[2020-11-03] MEDS: BENZONATATE 100 MG (TESSALON) CAPSULE PO PRN ×2 (09:00→20:58)
[2020-11-03] MEDS: guaiFENesin/CODEINE (ROBITUSSIN AC) 10ML UDC PO PRN (09:00)
[2020-11-03] MEDS: HYDROcodone/APAP 5 MG/325 MG (LORTAB) TAB PO PRN ×2 (09:01→20:58)
[2020-11-03] MEDS: ENOXAPARIN 100 MG/1 ML (LOVENOX) SYR SC SCH ×2 (10:28→20:58)
[2020-11-03] MEDS: IPRATROPIUM INHALER (ATROVENT) 12.9 GM INH SCH ×4 (11:50→21:31)
[2020-11-03 12:00] VITALS: BP 150/86
--- NOTE | 2020-11-03 15:55 | Progress Note - Hospitalist ---
Subjective HPI/CC On Admission Date Seen by Provider: Nov 03, 2020 Time Seen by Provider: 08:40 Pt is a 50yoCF witha PMH of HTN, fibromyalgia, PTSD, anxiety/Depression who presented to the ER with COVID like symptoms. She states her symptoms started 4- 5 days ago with cough, SOB, sore throat, lossof taste, nausea, diarrhea. She was tested in the ER and found to be positive for COVID. She is unvaccinated. She reports having a rough night with chills, cough, and body aches. She has been having off and on fevers as well. She is clinically ill appearing. Subjective/Events-last exam She is feeling much better today. She is eating breakfast. She is still short of breath. She still has a cough. She is not having fevers. Objective Exam Vital Signs Vital Signs Date Time Temp Pulse Resp B/P (MAP) Pulse Ox O2 Delivery O2 Flow Rate FiO2 11/03/20 13:00 70 11/03/20 13:00 20 92 Nasal Cannula 4.00 11/03/20 12:00 150/86 (107) 11/03/20 11:54 65 11/03/20 08:10 37.0 Capillary Refill : Less Than 3 Seconds General Appearance: No Apparent Distress, WD/WN Respiratory: Lungs Clear, Normal Breath Sounds, No Respiratory Distress Cardiovascular: Regular Rate, Rhythm, No Edema, No Murmur Gastrointestinal: Normal Bowel Sounds, Non Tender, Soft Extremity: Normal Inspection, Non Tender, No Pedal Edema Neurologic/Psychiatric: Alert, Oriented x3, No Motor/Sensory Deficits, Normal Mood/Affect Skin: Normal Color, Warm/Dry Results/Procedures Lab Laboratory Tests 11/03/20 03:14 Patient resulted labs reviewed. Imaging: Reviewed Imaging Report Assessment/Plan Assessment and Plan Assess & Plan/Chief Complaint Acute respiratory failure due to COVID-19 Hypercoagulable state associated with COVID-19 Continue on supplemental oxygen to keep sats >90 Decadron Remdesivir s/p 1 unit convalescent plasma TeleICU consult, appreciate assistance Transitioned from Vapotherm to nasal cannula Begin Lovenox CT Chest to rule out PE HTN BP well controlled, trend Anxiety/Depression Fibromylagia PTSD Continue home meds Critical Care Critically Ill Patient Diagnosis/Problems Diagnosis/Problems (1) Acute respiratory failure due to COVID-19 Status: Acute (2) Pneumonia due to COVID-19 virus Status: Acute (3) Hypercoagulable state associated with COVID-19 Status: Acute BRENDA LARSEN MD Nov 03, 2020 15:55
[2020-11-03 16:00] VITALS: BP 142/81
[2020-11-03] MEDS ORDERED: IOHEXOL 350 MG/ML 100 ML (OMNIPAQUE 350) VIAL IV ONE (16:00)
[2020-11-03] MEDS ORDERED: NS 100 ML (IVPB) BAG IV ONE (16:00)
[2020-11-03] MEDS ORDERED: CATHETER FLUSH 10 ML SYR IV PRN (16:00)
[2020-11-03] MEDS ORDERED: HOLD METFORMIN - RECEIVED CONTRAST 20 ML VIAL IV SCH (16:00)
--- NOTE | 2020-11-03 18:42 | Diagnostic Imaging Report ---
INDICATION: Shortness of breath TECHNIQUE: Multiple contiguous axial images were obtained through the chest after uneventful bolus administration of intravenous contrast. 3D reconstructed CTA MIP acquisitions were also performed. Auto Exposure Controls were utilized during the CT exam to meet ALARA standards for radiation dose reduction. There is no prior CT for comparison. There are bilateral pulmonary emboli involving the lower lobe branches as well as a few smaller emboli in the upper lobe branches. The main pulmonary artery and central right and left branches are spared. There is no definite right heart strain. There is underlying cardiomegaly. Aortic arch and great vessel origins are patent. There are some mildly prominent nodes in the mediastinum, including a node between the SVC and trachea measuring about 1.2 cm. There is a trace of pleural fluid on the right side with no significant left pleural fluid or pericardial fluid. Lung parenchymal windows demonstrate patchy extensive groundglass infiltrates throughout both lungs compatible with pneumonitis, this pattern is not specific but can be seen with Covid pneumonia. There is no pulmonary parenchymal mass. IMPRESSION: There are scattered groundglass infiltrates throughout both lungs compatible with pneumonia, this pattern can be seen with Covid pneumonia, correlate clinically. There is trace pleural fluid on the right side. There are borderline-sized nodes in the mediastinum. There are moderate-sized bilateral pulmonary emboli involving the lower lobe branches and, to lesser extent, in the upper lobes, with no overt right heart strain. Dictated by: Dictated on workstation # [id number]
[2020-11-03 20:00] VITALS: BP 164/86
[2020-11-03] MEDS: hydrOXYzine (ATARAX) 10 MG TAB PO PRN (20:58)
[2020-11-04] VITALS: BP 190/106
[2020-11-04] MEDS: IPRATROPIUM INHALER (ATROVENT) 12.9 GM INH SCH ×6 (02:06→23:12)
[2020-11-04] MEDS: RT-ALBUTEROL INHALER HFA (VENTOLIN HFA) 18 GM IH SCH ×6 (02:06→23:12)
[2020-11-04 03:28] LABS: CHLORIDE 98 MMOL/L (98-107); POTASSIUM 3.7 MMOL/L (3.6-5.0); SODIUM 134 MMOL/L (135-145)
[2020-11-04 03:30] LABS: CALCIUM 7.5 MG/DL (8.5-10.1)
[2020-11-04 03:31] LABS: GLUCOSE 170 MG/DL (70-105); TOTAL PROTEIN 5.8 GM/DL (6.4-8.2)
[2020-11-04 03:32] LABS: BILIRUBIN,TOTAL 0.6 MG/DL (0.1-1.0); CARBON DIOXIDE 24 MMOL/L (21-32)
[2020-11-04 03:34] LABS: ALKALINE PHOSPHATASE 74 U/L (40-136); CREATININE SERUM 0.61 MG/DL (0.60-1.30); GFR ESTIMATED > 60
[2020-11-04 03:35] LABS: BUN/CREATININE RATIO 18
[2020-11-04 03:37] LABS: ALANINE AMINOTRANSFERASE 32 U/L (0-55)
[2020-11-04 04:00] VITALS: BP 155/79
[2020-11-04 07:23] LABS: BASOPHILS # (AUTO) 0.1 10^3/uL (0.0-0.1); BASOPHILS % (AUTO) 0 % (0-10); EOSINOPHILS % (AUTO) 0 % (0-10); HEMATOCRIT 30 % (35-52); LYMPHOCYTES # (AUTO) 4.1 10^3/uL (1.0-4.0); LYMPHOCYTES % (AUTO) 18 % (12-44); MEAN CORPUSCULAR HEMOGLOBIN 27 pg (25-34); MEAN CORPUSCULAR HGB CONC 33 g/dL (32-36); MEAN CORPUSCULAR VOLUME 82 fL (80-99); MONOCYTES # (AUTO) 1.2 10^3/uL (0.0-1.0); MONOCYTES % (AUTO) 5 % (0-12); NEUTROPHILS # (AUTO) 15.7 10^3/uL (1.8-7.8); NEUTROPHILS % (AUTO) 69 % (42-75); PLATELET COUNT 332 10^3/uL (130-400); WHITE BLOOD COUNT 22.8 10^3/uL (4.3-11.0)
[2020-11-04 07:37] LABS: ATYPICAL LYMPHOCYTES 1 %; BAND NEUTROPHILS 2 %; BURR CELLS SLIGHT; LYMPHOCYTES % (MANUAL) 13 %; METAMYELOCYTES % 2 %; MICROCYTOSIS SLIGHT; MONOCYTES % (MANUAL) 8 %; NEUTROPHILS % (MANUAL) 74 %
[2020-11-04 08:00] VITALS: BP 159/69
[2020-11-04] MEDS: REMDESIVIR INJ 100 MG in NS (IVPB) 230 ML IV SCH (09:16)
[2020-11-04] MEDS: ENOXAPARIN 100 MG/1 ML (LOVENOX) SYR SC SCH (09:19)
[2020-11-04] MEDS: HYDROcodone/APAP 5 MG/325 MG (LORTAB) TAB PO PRN ×2 (09:19→21:48)
[2020-11-04] MEDS: guaiFENesin/CODEINE (ROBITUSSIN AC) 10ML UDC PO PRN ×2 (09:19→21:47)
[2020-11-04] MEDS: PANTOPRAZOLE 40 MG (PROTONIX) TAB PO SCH (09:20)
[2020-11-04] MEDS: BENZONATATE 100 MG (TESSALON) CAPSULE PO PRN ×2 (09:20→21:48)
[2020-11-04 12:00] VITALS: BP 161/85
--- NOTE | 2020-11-04 14:05 | Progress Note - Hospitalist ---
Subjective HPI/CC On Admission Date Seen by Provider: Nov 04, 2020 Time Seen by Provider: 08:55 Pt is a 50yoCF witha PMH of HTN, fibromyalgia, PTSD, anxiety/Depression who presented to the ER with COVID like symptoms. She states her symptoms started 4- 5 days ago with cough, SOB, sore throat, lossof taste, nausea, diarrhea. She was tested in the ER and found to be positive for COVID. She is unvaccinated. She reports having a rough night with chills, cough, and body aches. She has been having off and on fevers as well. She is clinically ill appearing. Subjective/Events-last exam She is feeling better today. She is still feels a bit short of breath. She still has a cough. She denies chest pain. She has been eating and drinking without issues. Objective Exam Vital Signs Vital Signs Date Time Temp Pulse Resp B/P (MAP) Pulse Ox O2 Delivery O2 Flow Rate FiO2 11/04/20 09:00 94 Nasal Cannula 4.00 11/04/20 08:00 55 46 159/69 (99) 11/04/20 08:00 35.9 11/03/20 16:04 65 Capillary Refill : Less Than 3 Seconds General Appearance: No Apparent Distress, Obese Respiratory: Lungs Clear, Normal Breath Sounds, No Respiratory Distress Cardiovascular: Regular Rate, Rhythm, No Edema, No Murmur Gastrointestinal: Normal Bowel Sounds, Non Tender, Soft Extremity: Normal Inspection, Non Tender, No Pedal Edema Neurologic/Psychiatric: Alert, Oriented x3, No Motor/Sensory Deficits, Normal Mood/Affect Skin: Normal Color, Warm/Dry Results/Procedures Lab Laboratory Tests 11/04/20 02:45 Patient resulted labs reviewed. Imaging: Reviewed Imaging Report Assessment/Plan Assessment and Plan Assess & Plan/Chief Complaint Acute respiratory failure due to COVID-19 Hypercoagulable state associated with COVID-19 Bilateral pulmonary emboli Decadron s/p Remdesivir s/p 1 unit convalescent plasma Continue oxygen via nasal cannula CT Chest showed bilateral groundglass opacities consistent with COVID, bilateral PE Transition to Xarelto Transfer to floor HTN Increase Amlodipine Anxiety/Depression Fibromylagia PTSD Continue home meds Critical Care Critically Ill Patient Diagnosis/Problems Diagnosis/Problems (1) Acute respiratory failure due to COVID-19 Status: Acute (2) Pneumonia due to COVID-19 virus Status: Acute (3) Hypercoagulable state associated with COVID-19 Status: Acute (4) Bilateral pulmonary embolism Status: Acute (5) Obesity Status: Chronic BRENDA LARSEN MD Nov 04, 2020 14:05
[2020-11-04] MEDS ORDERED: clonazePAM 1 MG (KlonoPIN) TAB PO PRN (14:15)
[2020-11-04] MEDS ORDERED: amLODIPine 10 MG (NORVASC) TAB PO ONE (14:15)
[2020-11-04 16:12] VITALS: BP 133/64
[2020-11-04] MEDS: RIVAROXABAN 15 MG TABLET (XARELTO) PO SCH (18:43)
[2020-11-04 19:55] VITALS: BP 177/73
[2020-11-04] MEDS: GABAPENTIN 600 MG (NEURONTIN) TAB PO SCH (21:47)
[2020-11-04] MEDS: polyethylene glycoL POWDER 17 GM (MIRALAX) PACK PO SCH (22:03)
[2020-11-04] MEDS: DOCUSATE SODIUM 100 MG (COLACE) CAP PO SCH (22:03)
[2020-11-04] MEDS: SENNA W/DOCUSATE (SENOKOT S) TABLET PO SCH (22:03)
[2020-11-05 00:19] VITALS: BP 172/70
[2020-11-05] MEDS: RT-ALBUTEROL INHALER HFA (VENTOLIN HFA) 18 GM IH SCH ×5 (02:33→18:40)
[2020-11-05] MEDS: IPRATROPIUM INHALER (ATROVENT) 12.9 GM INH SCH ×5 (02:33→18:41)
[2020-11-05 04:00] VITALS: BP 169/78
[2020-11-05] MEDS: RIVAROXABAN 15 MG TABLET (XARELTO) PO SCH (05:29)
[2020-11-05] MEDS: guaiFENesin/CODEINE (ROBITUSSIN AC) 10ML UDC PO PRN (05:33)
[2020-11-05 06:38] LABS: BUN/CREATININE RATIO 22; CALCIUM 7.7 MG/DL (8.5-10.1); CARBON DIOXIDE 24 MMOL/L (21-32); CHLORIDE 100 MMOL/L (98-107); CREATININE SERUM 0.63 MG/DL (0.60-1.30); GFR ESTIMATED > 60; GLUCOSE 125 MG/DL (70-105); MAGNESIUM 1.9 MG/DL (1.6-2.4); POTASSIUM 4.2 MMOL/L (3.6-5.0); SODIUM 133 MMOL/L (135-145)
[2020-11-05 06:47] LABS: BASOPHILS # (AUTO) 0.1 10^3/uL (0.0-0.1); BASOPHILS % (AUTO) 0 % (0-10); EOSINOPHILS % (AUTO) 0 % (0-10); HEMATOCRIT 34 % (35-52); HEMOGLOBIN 10.8 g/dL (11.5-16.0); LYMPHOCYTES # (AUTO) 4.1 10^3/uL (1.0-4.0); LYMPHOCYTES % (AUTO) 19 % (12-44); MEAN CORPUSCULAR HEMOGLOBIN 27 pg (25-34); MEAN CORPUSCULAR HGB CONC 32 g/dL (32-36); MEAN CORPUSCULAR VOLUME 83 fL (80-99); MEAN PLATELET VOLUME 9.5 fL (9.0-12.2); MONOCYTES # (AUTO) 1.3 10^3/uL (0.0-1.0); MONOCYTES % (AUTO) 6 % (0-12); NEUTROPHILS # (AUTO) 14.2 10^3/uL (1.8-7.8); NEUTROPHILS % (AUTO) 65 % (42-75); PLATELET COUNT 335 10^3/uL (130-400); WHITE BLOOD COUNT 21.8 10^3/uL (4.3-11.0)
[2020-11-05 07:47] VITALS: BP 127/69
--- NOTE | 2020-11-05 08:21 | Diagnostic Imaging Report ---
INDICATION: COVID COMPARISON: 10/30 FINDINGS: There are patchy bilateral infiltrates present with interval improvement in pulmonary density most notably at the level of the right upper lobe. There is no convincing evidence for pleural fluid and there is no pneumothorax. The heart size stable. No overt vascular congestion. IMPRESSION: While substantial bilateral infiltrates are present, there has been improvement from the study of 10/30 with no adverse interval development. Report was faxed to [facility] by irlanda at 8:20am. Dictated by: Dictated on workstation # [id number]
[2020-11-05] MEDS: SENNA W/DOCUSATE (SENOKOT S) TABLET PO SCH (08:44)
[2020-11-05] MEDS: PANTOPRAZOLE 40 MG (PROTONIX) TAB PO SCH (08:44)
[2020-11-05] MEDS: polyethylene glycoL POWDER 17 GM (MIRALAX) PACK PO SCH ×2 (08:44→08:46)
[2020-11-05] MEDS: DOCUSATE SODIUM 100 MG (COLACE) CAP PO SCH (08:44)
[2020-11-05] MEDS: GABAPENTIN 600 MG (NEURONTIN) TAB PO SCH (08:44)
[2020-11-05] MEDS ORDERED: amLODIPine 5 MG (NORVASC) TAB PO SCH (09:00)
[2020-11-05] MEDS ORDERED: DULoxetine 30 MG (CYMBALTA) CAP PO SCH (09:00)
--- NOTE | 2020-11-05 11:05 | Occupational Therapy Eval ---
OT Evaluation-General/PLF Medical Diagnosis Admission Date Oct 30, 2020 at 17:20 Medical Diagnosis: COVID Pneumonia, Hypoxia Onset Date: Oct 30, 2020 Therapy Diagnosis Therapy Diagnosis: decreased ADL status, weakness Height/Weight Height (Feet): 5 Height (Inches): 3.00 Weight (Pounds): 189 Weight (Ounces): 0.0 Precautions Precautions/Isolations: Airborne Isolation Referral Physician: [place] Referral Reason: Evaluation/Treatment Medical History Pertinent Medical History: HTN Additional Medical History PTSD, fibromyalgia, anxiety/depression, ADD/ADHD, Bipolar, suicide attempts Current History ED with COVID like symptoms x4-5 days, tested positive upon arrival to ED. Pt was unvaccinated Social History Home: Homeless ADL-Prior Level of Function SCALE: Activities may be completed with or without assistive devices. 0-Chqpneyrdq-fgjzjnq completes the activity by him/herself with no assistance from a helper. 5-Set-up or Clean-up Assistance-helper sets up or cleans up; patient completes activity. [place] assists only prior to or following the activity. 4-Supervision or Touching Assistance-helper provides verbal cues and/or touching/steadying and/or contact guard assistance as patient completes activity. Assistance may be provided throughout the activity or intermittently. 3-Partial/Moderate Assistance-helper does LESS THAN HALF the effort. [place] lifts, holds or supports trunk or limbs, but provides less than half the effort. 2-Substantial/Maximal Assistance-helper does MORE THAN HALF the effort. [place] lifts or holds trunk or limbs and provides more than half the effort. 9-Ushtxidug-tfbxty does ALL the effort. Patient does none of the effort to complete the activity. Or, the assistance of 2 or more helpers is required for the patient to complete the activity. If activity was not attempted, code reason: 7-Patient Refused. 9-Not Applicable-not attempted and the patient did not perform the activity before the current illness, exacerbation or injury. 10-Not Attempted due to Environmental Limitations-(lack of equipment, weather restraints, etc.). 88-Not Attempted due to Medical Conditions or Safety Concerns. ADL PLOF Comments Pt unable to provide much information on PLOF. States she needed assistance with all ADLs, indicating she needed home health services but did not have them. Upon further discussion with pt, she states she is basically homeless, but states 5-6 steps to enter her home. Pt indicates she is able to perform functional mobility without AD, but she had a difficult time. When OT questioned how much assistance pt needed with showering, asking if pt was able to wash her legs/feet or have help, she reports she was unsure. Self Care: Unknown Functional Cognition: Unknown OT Current Status Subjective Pt laying in bed, agreeable to OT tx. Mental Status/Objective Patient Orientation: Person, Place, Situation Current Upper Extremity ROM WFL, BUE shoulder flexion to approx 150 degrees Upper Extremity Coordination WFL Upper Extremity Sensation WFL Upper Extremity Strength grossly 4/5 BUEs. With testing, pt would give up and completely stop resisting therapist after a couple seconds. ADL-Treatment Eating (QC): 6 (Based on clincial judgement) Oral Hygiene (QC): 5 (based on clincial judgement) Upper Body Dressing (QC): 5 (based on clincial judgement.) Other Treatments Pt laying in bed, RT present and turned O2 from 2L, to RA. Pt transferred supine to sit EOB independently, then performed functional mobility around her room and to recliner, no AD, no LOB (~100'). Pt inconsistent with answers about PLOF and home set up, indicating she has 5-6 steps at home, but then states she is basically homeless. OT attempted to provide information about ADL ability, pt insistent that she needs help with ADLs, but did not have assistance with them. When asked about her ability to complete showering, OT asked pt if she needed help washing her feet and legs, pt was unsure what she needed help with but states she needed help. Pt states slightly lightheaded with ambulation, BP within normal range, and O2 saturation 88-89%. With cues for deep breathing, pt able to increase O2 saturation to 94%. Post tx, pt seated in recliner, all needs met, call light in reach. RT present monitoring O2 saturation. Education OT Patient Education: Correct positioning, Modified ADL techniques, Progress toward Goal/Update tx plan, Purpose of tx/functional activities, Rehab process Teaching Recipient: Patient Teaching Methods: Discussion Response to Teaching: Verbalize Understanding OT Group Home Goals Group Home Goals Time Frame: Nov 12, 2020 Eating (QC): 6 Oral Hygiene (QC): 6 Toileting Hygiene (QC): 6 Shower/Bathe Self (QC): 6 Upper Body Dressing (QC): 6 Lower Body Dressing (QC): 6 On/Off Footwear (QC): 6 Additional Goals: 1-Demonstrate ADL Tasks, 2-Verbalize Understanding, 3- ImproveStrength/Carlene 1=Demonstrate adherence to instructed precautions during ADL tasks. 2=Patient will verbalize/demonstrate understanding of assistive devices/modifications for ADL. 3=Patient will improve strength/tolerance for activity to enable patient to perform ADL's. OT Education/Plan Problem List/Assessment Assessment: Decreased Activ Tolerance, Decreased UE Strength, Impaired I ADL's Discharge Recommendations Plan/Recommendations: Continue POC Treatment Plan/Plan of Care Patient would benefit from OT for education, treatment and training to promote independence in ADL's, mobility, safety and/or upper extremity function for ADL's. Plan of Care: ADL Retraining, Functional Mobility, UE Funct Exercise/Act Treatment Duration: Nov 12, 2020 Frequency: 5 times per week Estimated Hrs Per Day: .25 hour per day Rehab Potential: Fair Time/GCodes Start Time: 10:35 Stop Time: 10:49 Total Time Billed (hr/min): 14 Billed Treatment Time 1, DENNIS GREENE OT Nov 05, 2020 11:05
--- NOTE | 2020-11-05 11:31 | Physical Therapy Evaluation ---
PT Evaluation-General Medical Diagnosis Admission Date Oct 30, 2020 at 17:20 Medical Diagnosis: COVID Pneumonia, Hypoxia Onset Date: Oct 30, 2020 Therapy Diagnosis Therapy Diagnosis: impaired endurance Height/Weight Height (Feet): 5 Height (Inches): 3.00 Weight (Pounds): 189 Weight (Ounces): 0.0 Precautions Precautions/Isolations: Airborne Isolation Referral Physician: [place] Reason for Referral: Evaluation/Treatment Medical History Pertinent Medical History: HTN, Smoking Additional Medical History Past Medical History Surgeries: Hysterectomy, Orthopedic High Cholesterol, Hypertension Fibromyalgia ADD/ADHD, Anxiety, PTSD, Suicide Attempts, Bipolar, Depression Reviewed History: Yes Social History Home: Homeless Patient states she is homeless Prior Prior Level of Function SCALE: Activities may be completed with or without assistive devices. 3-Lapfyctvbq-tmieorz completes the activity by him/herself with no assistance from a helper. 5-Set-up or Clean-up Assistance-helper sets up or cleans up; patient completes activity. [place] assists only prior to or following the activity. 4-Supervision or Touching Assistance-helper provides verbal cues and/or touch ing/steadying and/or contact guard assistance as patient completes activity. Assistance may be provided throughout the activity or intermittently. 3-Partial/Moderate Assistance-helper does LESS THAN HALF the effort. [place] lifts, holds or supports trunk or limbs, but provides less than half the effort. 2-Substantial/Maximal Assistance-helper does MORE THAN HALF the effort. [place] lifts or holds trunk or limbs and provides more than half the effort. 3-Wldbgloun-jwfcrr does ALL the effort. Patient does none of the effort to complete the activity. Or, the assistance of 2 or more helpers is required for the patient to complete the activity. If activity was not attempted, code reason: 7-Patient Refused. 9-Not Applicable-not attempted and the patient did not perform the activity before the current illness, exacerbation or injury. 10-Not Attempted due to Environmental Limitations-(lack of equipment, weather restraints, etc.). 88-Not Attempted due to Medical Conditions or Safety Concerns. Bed Mobility: 6 Transfers (B,C,W/C): 6 Gait: 6 Stairs: 6 Indoor Mobility (Ambulation): Independent Stairs: Independent PT Evaluation-Current Subjective Patient in bed pre tx, agrees to PT, has no complaints of pain. Pt/Family Goals "I don't know" Objective Patient Orientation: Person, Place, Eyes Open Attachments: Oxygen ROM/Strength ROM Lower Extremities WNL Strength Lower Extremities 5/5 gross BLE Sensory Hearing: Functional Sensation Right Lower Extremit: Intact Sensation Left Lower Extremity: Intact Transfers Roll Left to Right (QC): 6 Lying to Sitting/Side of Bed(Q: 6 Sit to Stand (QC): 6 Chair/Nbc-qv-Vtpns Xfer(QC): 6 Gait Does the Patient Walk?: Yes Mode of Locomotion: Walk Anticipated Mode of Locomotion: Walk Walk 10 feet (QC): 6 Walk 50 ft with 2 Turns(QC): 6 Distance: 100' Gait Assistive Device: None Comments/Gait Description Patient walks about her room about 100' without an assistive device, slow but steady ambulation, slightly SOB, O2 was 88% after ambulation (without O2) but came back up to 90 shortly after sitting and resting. Balance Sitting Static: Normal Sitting Dynamic: Normal Standing Static: Normal Standing Dynamic: Normal Assessment/Needs Patient in recliner post tx with nurse call, phone, tray, all needs met. She is independent with mobility but needs to work on her endurance. Rehab Potential: Fair PT Usp Goals Usp Goals PT Con[employer] [place] Goals Time Frame: Nov 12, 2020 Roll Left & Right (QC): 6 Sit to Lying (QC): 6 Lying-Sitting on Side/Bed(QC): 6 Sit to Stand (QC): 6 Chair/Msy-dp-Fkrxx Xfer(QC): 6 Walk 10 feet (QC): 6 Walk 50ft with 2 Turns (QC): 6 Walk 150 ft (QC): 6 PT Plan Problem List Problem List: Activity Tolerance, Functional Strength, Safety, Balance, Gait, Transfer Treatment/Plan Treatment Plan: Continue Plan of Care Treatment Plan: Education, Functional Activity Carlene, Functional Strength, Gait, Safety, Therapeutic Exercise, Transfers Treatment Duration: Nov 12, 2020 Frequency: 6 times per week Estimated Hrs Per Day: .25 hour per day Patient and/or Family Agrees t: Yes Safety Risks/Education Patient Education: Gait Training, Transfer Techniques, Correct Positioning, Safety Issues Teaching Recipient: Patient Teaching Methods: Demonstration, Discussion Response to Teaching: Reinforcement Needed Discharge Recommendations Plan Patient will perform bed mobility and transfer training, balance and endurance training, functional strengthening, gait training, and education, to improve functional mobility and independence at home. Therapy Discharge Recommendati: Home & Family, Post Acute PT Time/GCodes Time In: 1034 Time Out: 1048 Total Billed Treatment Time: 14 Total Billed Treatment 1visit MANDEEP 14' GORDON ALONSO PT Nov 05, 2020 11:31
[2020-11-05 11:36] VITALS: BP 131/68
[2020-11-05] MEDS ORDERED: AMLO-250 PO (14:31)
[2020-11-05] MEDS ORDERED: RIVA1TAB PO (14:31)
--- NOTE | 2020-11-05 14:36 | Discharge Summary ---
Discharge Summary Hospital Course Was the Problem List Reviewed?: Yes Problems/Dx: (1) Acute respiratory failure due to COVID-19 Status: Acute (2) Pneumonia due to COVID-19 virus Status: Acute (3) Hypercoagulable state associated with COVID-19 Status: Acute (4) Bilateral pulmonary embolism Status: Acute (5) Obesity Status: Chronic Hospital Course Date of Admission: Oct 30, 2020 at 17:20 Admission Diagnosis : Acute respiratory failure due to COVID-19 Family Physician/Provider: No,Local Physician Date of Discharge: 11/05/20 Discharge Diagnosis: Acute respiratory failure due to COVID-19, bilateral pulmonary embolism Hospital Course: Irene Munson is a 50-year-old female who was admitted with acute respiratory failure due to COVID-19. She was treated with Decadron, remdesivir, and convalescent plasma. She required ICU admission and Vapotherm. She was still requiring a bit of oxygen at the time of discharge and a respiratory therapy study found her to require 2 L with exertion. She was also found to have bilateral pulmonary embolism. She was started on Lovenox and transitioned to Xarelto. She was given a Xarelto starter pack on discharge. She will need at least 3 months of anticoagulation. Her course was complicated by hypertension and her amlodipine dose was increased. She should follow-up with her primary care physician. She was discharged home in stable condition. Labs and Pending Lab Test: Laboratory Tests 11/05/20 06:00: Sodium Level 133L, Potassium Level 4.2, Chloride Level 100, Carbon Dioxide Level 24, Anion Gap 9, Blood Urea Nitrogen 14, Creatinine 0.63, Estimat Glomerular Filtration Rate > 60, BUN/Creatinine Ratio 22, Glucose Level 125H, Calcium Level 7.7L, Magnesium Level 1.9, Procalcitonin 0.04 11/05/20 06:31: White Blood Count 21.8H, Red Blood Count 4.08, Hemoglobin 10.8L, Hematocrit 34L, Mean Corpuscular Volume 83, Mean Corpuscular Hemoglobin 27, Mean Corpuscular Hemoglobin Concent 32, Red Cell Distribution Width 17.9H, Platelet Count 335, Mean Platelet Volume 9.5, Immature Granulocyte % (Auto) 10, Neutrophils (%) (Auto) 65, Lymphocytes (%) (Auto) 19, Monocytes (%) (Auto) 6, Eosinophils (%) (Auto) 0, Basophils (%) (Auto) 0, Neutrophils # (Auto) 14.2H, Lymphocytes # (Auto) 4.1H, Monocytes # (Auto) 1.3H, Eosinophils # (Auto) 0.0, Basophils # (Auto) 0.1, Immature Granulocyte # (Auto) 2.1H Microbiology 10/30/20 Blood Culture - Final, Complete No growth 10/30/20 Urine Culture - Final, Complete 3 or more isolates Home Meds Active Reported Furosemide 20 Mg Tablet 20 Mg PO DAILY PRN Gabapentin 600 Mg Tablet 600 Mg PO TID LAST FILLED 08/13/2020 #90 30 DAY SUPPLY Clonazepam 1 Mg Tablet 1 Mg PO TID PRN Amlodipine Besylate 5 Mg Tablet 5 Mg PO DAILY LAST FILLED 07/07/20 #30 30 DAY SUPPLY Duloxetine HCl 60 Mg Capsule.dr 60 Mg PO DAILY LAST FILLED 08/13/2020 #30 30 DAY SUPPLY Meloxicam 15 Mg Tablet 15 Mg PO DAILY LAST FILLED 08/13/2020 #30 30 DAY SUPPLY Aripiprazole 5 Mg Tablet 5 Mg PO DAILY LAST FILLED 08/13/2020 #30 30 DAY SUPPLY Assessment/Pt Instructions Take medications as prescribed. Begin taking Xarelto for pulmonary embolism. Follow-up with your primary care physician. Return with worsening shortness of breath, chest pain, or if you feel like you are getting worse. Discharge Planning: >30 minutes discharge planning Discharge Instructions Discharge Diet: No Restrictions Activity as Tolerated: Yes Discharge Physical Examination Vital Signs Vital Signs Date Time Temp Pulse Resp B/P (MAP) Pulse Ox O2 Delivery O2 Flow Rate FiO2 11/05/20 14:03 93 Room Air 0.00 11/05/20 11:36 36.2 71 22 131/68 (89) 11/03/20 16:04 65 General Appearance: No Apparent Distress, Obese HEENT: PERRL/EOMI, Pharynx Normal Respiratory: Lungs Clear, Normal Breath Sounds, No Respiratory Distress Cardiovascular: Regular Rate, Rhythm, No Edema, No Murmur Gastrointestinal: Normal Bowel Sounds, Non Tender, Soft Extremity: Normal Inspection, Non Tender, No Pedal Edema Skin: Normal Color, Warm/Dry Neurologic/Psychiatric: Alert, Oriented x3, No Motor/Sensory Deficits, Normal Mood/Affect Allergies: Coded Allergies: No Known Drug Allergies (Unverified , 12/29/17) Discharge Summary Date of Admission Oct 30, 2020 at 17:20 Date of Discharge Discharge Date: Nov 05, 2020 Discharge Time: 14:35 Admission Diagnosis Acute respiratory failure due to COVID-19 Discharge Diagnosis Acute respiratory failure due to COVID-19 Hypercoagulable state associated with COVID-19 Bilateral pulmonary emboli (1) Acute respiratory failure due to COVID-19 Status: Acute (2) Pneumonia due to COVID-19 virus Status: Acute (3) Hypercoagulable state associated with COVID-19 Status: Acute (4) Bilateral pulmonary embolism Status: Acute (5) Obesity Status: Chronic BRENDA LARSEN MD Nov 05, 2020 14:36
[2020-11-05 16:08] VITALS: BP 137/65
[2020-11-15] MEDS ORDERED: RIVAROXABAN 20 MG TABLET (XARELTO) PO SCH (17:00)
== END 2020-11-05 18:30 | disposition home or self-care (01) | DRG 177 ==
LOC: EDUNIT# 13:57 → ER 13:59 → ICU 17:20 → 4TH 11-04 11:16
PROVIDERS: ADMIT Family Medicine; ATTEND Internal Medicine
PROC: XW033E5 Introduction of Remdesivir Anti-infective into Peripheral Vein, Percutaneous Approach, New Technology Group 5 (ICD-10-PCS; principal; 2020-10-31)
PROC: XW13325 Transfusion of Convalescent Plasma (Nonautologous) into Peripheral Vein, Percutaneous Approach, New Technology Group 5 (ICD-10-PCS; 2020-10-31)
DX: U07.1 COVID-19 (principal); J12.82 Pneumonia due to coronavirus disease 2019; J96.01 Acute respiratory failure with hypoxia; I26.99 Other pulmonary embolism without acute cor pulmonale; D68.69 Other thrombophilia; E66.9 Obesity, unspecified; Z68.33 Body mass index [BMI] 33.0-33.9, adult; I10 Essential (primary) hypertension; F17.210 Nicotine dependence, cigarettes, uncomplicated; E78.00 Pure hypercholesterolemia, unspecified; F41.9 Anxiety disorder, unspecified; M79.7 Fibromyalgia; F31.9 Bipolar disorder, unspecified; F90.9 Attention-deficit hyperactivity disorder, unspecified type; F43.10 Post-traumatic stress disorder, unspecified; Z82.49 Family history of ischemic heart disease and other diseases of the circulatory system
CPT/HCPCS: 36410; 36415; 71045; 71275; 76937; 80048; 80053; 81000; 83605; 83735; 84145; 85007; 85025; 85027; 85379; 86900; 86901; 87040; 87077; 87088; 87186; 87636; 94640; 94664; 94761; 96361; 96374

== ENCOUNTER 2022-06-27 11:14 | Emergency (ER) | payer MEDICARE, MEDICAID ==
[~2022-06-27] VITALS: Ht 160 cm; Wt 86.2 kg
[~2022-06-27 11:14] MED LIST changes: +FURO20TA4 PO; +RIVA1TAB PO; +TIZA-186 PO; -TIZA4TAB4 PO
--- NOTE | 2022-06-27 11:42 | ED Integumentary General ---
General Chief Complaint: Skin/Wound Problems Stated Complaint: LEFT LOWER EXTREMITY Source: patient Exam Limitations: no limitations History of Present Illness Date Seen by Provider: Jun 27, 2022 Time Seen by Provider: 11:28 Initial Comments 52-year-old female presents to the ED with a skin complaint on her left gluteus. States this started last week as a small spot, and now has grown larger. Denies drainage from area. Reports subjective fevers. Reports she has a lot of pain in the area. She is also complaining of feeling a little woozy from the pain. Allergies and Home Medications Allergies Coded Allergies: No Known Drug Allergies (Unverified , 12/29/17) Patient Home Medication List Home Medication List Reviewed: Yes Amlodipine Besylate (Amlodipine Besylate) 5 Mg Tablet, 10 MG PO DAILY Prescribed by: BRENDA LARSEN on 11/05/20 1431 Aripiprazole (Aripiprazole) 5 Mg Tablet, 5 MG PO DAILY, (Reported) Entered as Reported by: RADHA HAWKINS on 12/29/17 1011 Cefuroxime Axetil (Cefuroxime) 500 Mg Tablet, 500 MG PO BID Prescribed by: Edwige Frances on 06/27/22 1144 Clonazepam (Clonazepam) 1 Mg Tablet, 1 MG PO TID PRN for ANXIETY, (Reported) Entered as Reported by: RADHA HAWKINS on 12/29/17 1011 Duloxetine HCl (Duloxetine HCl) 60 Mg Capsule.dr, 60 MG PO DAILY, (Reported) Entered as Reported by: RADHA HAWKINS on 12/29/17 1011 Furosemide (Furosemide) 20 Mg Tablet, 20 MG PO DAILY PRN for FLUID RETENTION, (Reported) Entered as Reported by: RUPINDER CAST on 10/31/20 1505 Gabapentin (Gabapentin) 600 Mg Tablet, 600 MG PO TID, (Reported) Entered as Reported by: RUPINDER CAST on 10/31/20 1505 Meloxicam (Meloxicam) 15 Mg Tablet, 15 MG PO DAILY, (Reported) Entered as Reported by: RADHA HAWKINS on 12/29/17 1011 Rivaroxaban (Xarelto Starter Pack) 1 Each Tab.ds.pk, 1 EACH PO UD Prescribed by: BRENDA LARSEN on 11/05/20 1431 Review of Systems Review of Systems Constitutional: fever Respiratory: no symptoms reported Cardiovascular: no symptoms reported Skin: see HPI Past Hrulrpa-Penelp-Otgamp Hx Past Medical History Surgeries: Yes (neck) Hysterectomy, Orthopedic Respiratory: No Cardiac: Yes High Cholesterol, Hypertension Neurological: No Reproductive Disorders: No Genitourinary: No Gastrointestinal: No Musculoskeletal: Yes Fibromyalgia Endocrine: No HEENT: No Cancer: No Psychosocial: Yes ADD/ADHD, Anxiety, PTSD, Suicide Attempts, Bipolar, Depression Blood Disorders: Yes Family Medical History Hypertension Physical Exam Vital Signs Vital Signs - First Documented 06/27/22 11:19 Temp 36.3 Pulse 89 Resp 18 B/P (MAP) 135/85 (102) Pulse Ox 97 O2 Delivery Room Air Capillary Refill : General Appearance: WD/WN, no apparent distress Neck: full range of motion, normal inspection Cardiovascular: regular rate, rhythm, no edema, no gallop, no JVD, no murmur Respiratory: lungs clear, normal breath sounds, no respiratory distress, no accessory muscle use Extremities: normal range of motion, normal inspection Neurologic/Psychiatric: alert, normal mood/affect, oriented x 3 Skin: normal color, warm/dry Skin Problem Location: other (Left gluteus) Skin Problem Character: erythema (Large area of induration 7 cm x 7 cm, erythema, no area of fluctuation) Progress/Results/Core Measures Results/Orders Vital Signs/I&O 06/27/22 06/27/22 11:19 11:55 Temp 36.3 Pulse 89 91 Resp 18 18 B/P (MAP) 135/85 (102) 129/87 Pulse Ox 97 98 O2 Delivery Room Air Room Air Progress Progress Note : Time: 11:37 Progress Note Patient seen and evaluated, resting comfortably in bed, no acute distress. Based on exam and symptoms, concern for cellulitis, no area of fluctuation able to drain at this time. Patient instructed to do warm compresses several times a day and see her primary in 2 to 3 days or return here for wound evaluation. Will start her on antibiotic. Discharge instructions and return precautions provided. Departure Impression Primary Impression: Cellulitis Disposition: 01 HOME, SELF-CARE Condition: Stable Departure-Patient Inst. Decision time for Depature: 11:38 Referrals: [facility] (PCP/Family) Primary Care Physician Patient Instructions: Cellulitis (Skin Infection), Adult (DC) Add. Discharge Instructions: Follow-up with Dr. Williamson, the walk-in clinic, or return here in 2 to 3 days to have the wound reevaluated. Use warm compresses several times a day. You may take Tylenol or ibuprofen as needed for pain. Take full course of antibiotic, even if symptoms improve. Return for recurrent vomiting, fevers greater than 100.4, increase in area of redness, foul-smelling discharge from the area, increased pain, or any other new, concerning, or worsening symptoms. All discharge instructions reviewed with patient and/or family. Voiced understanding. Scripts Cefuroxime Axetil (Cefuroxime) 500 Mg Tablet 500 MG PO BID for 7 Days, #14 TAB 0 Refills Prov: EDWIGE FRANCES APRN 06/27/22 EDWIGE FRANCES APRN Jun 27, 2022 11:42
[2022-06-27] MEDS ORDERED: CEFU500T63 PO (11:44)
[2022-06-27 11:55] VITALS: BP 129/87
== END 2022-06-27 11:55 | disposition home or self-care (01) ==
LOC: EDUNIT# 11:14 → ER 11:17
DX: L03.317 Cellulitis of buttock (principal)
CPT/HCPCS: 99282